=== PATIENT | female | born 2000 | race Caucasian/White ===

== ENCOUNTER 2024-12-12 14:29 | Outpatient (OUT) | payer BC, SELFPAY ==
--- OUTSIDE RECORDS SUMMARY | 2024-11-22 11:15 | XMS_ITS | Encounter Summary ---
Author Organization [employer] Address [id number] [address] [place] [address] Care Team Providers Care Wood Cut Engraver Name Role Phone Unavailable Primary Care Provider Unavailabl e Reason for Referral * Consultation (Routine) - Pending Review Specialty Diagnoses / Procedures Referred By Contac t Referred To Contact Internal Medicine Diagnoses Does not have primary care provider Sarah Mcconnell APRN-CNM [address] [place] [address], [address] [address] Phone: tel: fax: [facility] [address] [place] [phone] Phone: tel: fax: Referral ID Status Reason Start Date Expiration Date Visits Requested Visits Authorized [id number] Pending Review Specialty Services Required 11/23/2024 11/23/2025 1 1 * Consultation (Routine) - Pending Review Specialty Diagnoses / Procedures Referred By Contac t Referred To Contact Gynecology Diagnoses Encounter for visit Sarah Mcconnell APRN-CNM [address] [place] [address], [address] [place] [address] Phone: tel: fax: [facility] [address] [place] [phone] Phone: tel: fax: Referral ID Status Reason Start Date Expiration Date V isits Requested Visits Authorized [id number] Pending Review 11/22/2024 11/22/2025 1 1 Reason for Visit * Reason Comments Care Encounter Details Date Type Department Care Team (Latest Contact Info) Description 11/22/2024 11:15 AM EDT Visit [facility] [address] [place] [id number] Encounter for visit (Primary Dx); Chronic hypertension; Liveborn , of twin , born in hospital by vaginal delivery; Does not have primary care provider; Bladder prolapse, female, acquired Social History Tobacco Use Types Packs/Day Years Used Date Smoking Tobacco: Never Smokeless Tobacco: Never Alcohol Use Standard Drinks/Week Comments Not Currently 0 (1 standard drink = 0.6 oz pur e alcohol) Overall Financial Resource Strain (CARDIA) Answe r Date Recorded How hard is it for you to pa y for the very basics like food, housing, medical care, and heating? Not hard at all 11/22/2024 PHQ-2 Answer Date Recorded Total Score 0 11/22/2024 [employer] Depression Scale Answer Date Recorded [employer] Depression Scale Total 3 11/22/2024 The thought of harming myself has occurred to me . Never 11/22/2024 Housing Instability Answer Date Recorde d Are you worried or concerned that in the next two months you may not have stable housing that you own, rent or stay in as a part of a household? No 10/17/2024 Childcare Answer Date Recorded Do problems getting child ca re make it difficult for you to work or study? No 11/22/2024 Hunger Screening Answer Date Recorded Within the past 12 months we worried whether our food would run out before we got money to buy more. Never True 11/22/2024 Within the past 12 months th e food we bought just didn't last and we didn't have money to get more. Never True 11/22/2024 Comments No Sex and Gender Information Value Date Recorded Sex Assigned at Not on file Legal Sex Female 9:56 AM EST Gender Identity Not on file Sexual Orientation Not on file documented as of this encounter Last Filed Vital Signs Vital Sign Reading Time Taken Comments Blood Pressure 121/84 11/22/2024 11:22 AM EDT automatic Pulse - - Temperature - - Respiratory Rate - - Oxygen Saturation - - Inhaled Oxygen Concentration - - Weight 74.2 kg (163 lb 9.6 oz) 11/23/19 11:22 AM EDT Height 165.1 cm (5' 5 ) 11/22/2024 11:2 2 AM EDT Body Mass Index 27.22 11/22/2024 11:22 AM EDT documented in this encounter Progress Notes * Sarah Mcconnell, CHAVO-CNM - 11/22/2024 11:15 AM EDT Subjective: Natalia Arias is a 24 y.o. female who presents for a visit. She is 6 week following a twin spontaneous vaginal delivery. The patient feels well. The patient denies emotional concerns. Pain is well controlled with current medications. I have fully reviewed the and intrapartum course. The delivery was at 36w3d gestational weeks and complicated by: cHTN, mono-di twin , and anomalies. Outcome: spontaneous vaginal delivery. Anesthesia: epidural. course has been uneventful. Denies JACKSON, changes in vision, SOB, chest pain, RUQ pain, or swelling. Patient stopped taking BP medication and stopped checking her BP at about second week PP due to persistent BP of 120/60. Bleeding staining only. Bowel function is normal. Bladder function is abnormal: endorses dribbling.Patient endorses a feeling of fullness in vagina and would like for us to check laceration as she continues to feel stiches. Patient is not sexually active. Contraception method is condoms. EPDS score = 3 BABY Babies are both males. Babies are feeding by breast and bottle. Babies have been seen outpatient bya provider and reports to be doing well and gaining great weight. Patient endorses great support from her . Review of Systems Constitutional: negative Respiratory: negative Cardiovascular: negative Gastrointestinal: negative Genitourinary:positive for urinary incontinence Integument/breast: negative Objective: BP 121/84 (BP Site: Left Arm, BP Postition: Sitting, BP CUFF SIZE: M (9-13 inches)) Comment: automatic Ht 165.1 cm (5' 5 ) Wt 74.2 kg (163 lb 9.6 oz) Yes BMI 27.22 kg/m?? General: alert, appears stated age, and cooperative Vulva: normal Vagina: vagina positive for vaginal tear/laceration healing well and stitches are coming off. + forbladder prolapse Fleet [employer] offered and accepted Assessment/Plan: Natalia Arias 24 y.o. presents for 6 WK PP visit 1. Encounter for visit - [facility] - [place], [place]; Future 2. Chronic hypertension - Stopped taking labetalol by 2 wks PP - BP was consistently running at 120/60 - denies having BP log today 3. Liveborn infant, of twin , born in hospital by vaginal delivery 4. Does not have primary care provider - [facility] - [facility] - [place], [place]; Future - Encouraged to establish care with PCP 5. Bladder prolapse, female, acquired - Pelvic floor referral sent - Education on Kegel exercise reviewed: 10 Kegels 3x per day. Use breath work to hold muscle tension. MADISYN PAULSON APRN-CNM 11/23/24 0057 * Irma Carlos RN - 11/22/2024 11:15 AM EDT Patient is here for 6 week visit; delivered vaginally on 10/10/2024. Patient reports feeling good . EPDS: 3 (last question 0) Infant Mortality Screening: completed by patient on tablet. Breast feeding/pumping is going well. Light pink Lochia; no clots. Condoms for control. Patient would like to have pelvic exam today concerned for prolapse and non- dissolved stitches. Patient reports she had a pap done at her previous OBGYN office at the beginning of the before transfer to our office. Completed 04/06/2024- Negative cytology HPV not run. No additional questions or concerns. documented in this encounter Plan of Treatment Scheduled Referrals Name Type Priority Associated Diagnoses Order Schedule [facility] - [facility] - [place], [place] Outpatient Referral Routine Encounter for visit 1 Occurrences starting 11/22/2024 until 11/22/2025 [facility] - [place], [place] Outpatient Referral Routine Does not have primary care provider 1 Occurrences starting 11/23/2024 until 11/22/2025 documented as of this encounter Visit Diagnoses Diagnosis Encounter for visit- Primary Chronic hypertension Liveborn , of twin , born in hospital by vaginal delivery Does not have primary care provider Bladder prolapse, female, acquired documented in this encounter Additional Health Concerns Assessment Noted Time PHQ-9 Depression Total Score: 0 11/23/19 11:33 AM EDT documented as of this encounter
--- OUTSIDE RECORDS SUMMARY | 2024-12-12 14:38 | XMS_ITS | Encounter Summary ---
Author Organization [facility] Address [address] [place] [address] Care Team Providers Care Jammer Hooker Name Role Phone Unallocated, Noms Provider Primary Care Provi kelly Encounter Details Date Type Department Care Team ([facility] Contact Info) Description 05/25/2024 External Result Encounter [facility] [address] [facility] [address] [place] [id number] Jhony Gorman, DO [address] [facility] [address] [place] [address] Social History Tobacco Use Types Packs/Day Years Used Date Smoking Tobacco: Never Smokeless Tobacco: Never Alcohol Use Standard Drinks/Week Comments Not Currently 0 (1 standard drink = 0.6 oz pur e alcohol) Caffeine intake: 100mg/daily Estimated Date of Delivery Comme nts Yes 11/04/2024 Based on Ultraso und Sex and Gender Information Value Date Recorded Sex Assigned at Not on file Legal Sex Female 9:39 AM EDT Gender Identity Not on file Sexual Orientation Not on file 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 2 67200: Transvaginal Ultrasound (OB) 31189: Doppler Ductus Venosus. 2 51225: Doppler Umbilical Artery. 2 34130: Doppler Middle Cerebral Artery. 2 Indication ======== Screening for Anatomic Survey, Boone-Di twin , Twin-twin transfusion, Supervision of high risk -Twin A: FGR,absent bladder, Oligohydramnios, Twin B : abnormal dopplers History ====== OB History 1. Para 0 [id number] Maternal Assessment Physical Exam Height 168 cm, 5 ft 6 in. Weight 71 kg, 157 lb. BMI 25.34 kg/m??? Method ====== Transabdominal ultrasound examination. View: Suboptimal view: limited by early gestational age ========= Twin . Number of fetuses: 2. Monochorionic-diamniotic Dating ====== Date Details Gest. age PRISCILLA LMP 01/18/2024 18 w + 2 d 10/24/2024 Previous U/S 04/09/2024 GA, GA 10 w + 1 d 16 w + 5 d 11/04/2024 U/S Fetus A 05/25/2024 based upon AC, BPD, Femur, HC 16 w + 0 d 11/09/2024 U/S Fetus B based upon AC, BPD, Femur, HC 16 w + 4 d 11/05/2024 Assigned dating based on ultrasound (GA), selected on 05/25/2024 16 w + 5 d 11/04/2024 Fetus A: General Evaluation Cardiac activity Present. FHR 162 bpm. Presentation: cephalic left, lower presenting fetus Placenta: Placental site: posterior, away from cervical os Umbilical cord: Cord vessels: 3 vessel cord. Insertion site: marginal insertion Amniotic fluid: Amount of AF: oligohydramnios. MVP 1.0 cm Fetus B: General Evaluation Cardiac activity Present. FHR 159 bpm. Presentation: cephalic right, upper fetus Placenta: Placental site: posterior, away from cervical os Umbilical cord: Cord vessels: 3 vessel cord. Insertion site: normal insertion Amniotic fluid: Amount of AF: normal amount. MVP 7.0 cm Fetus A: Biometry BPD 33.0 mm 16w 2d 27% Hadlock OFD 46.1 mm 17w 4d 78% Roberth HC 127.6 mm 16w 3d 26% Hadlock Cerebellum tr 15.0 mm 16w 3d 5% Scott AC 100.3 mm 16w 0d 28% Hadlock Femur 18.4 mm 15w 3d 7% Hadlock Humerus 18.5 mm 15w 3d 11% Roberth HC / AC 1.27 90% Hadlock Weight Calculation: EFW 137 g 7% Hadlock EFW (lb,oz) 0 lb 5 oz EFW by Hadlock ([id number]) EFW discordance 10.1 % Head / Face / Neck Biometry: Cephalic index 0.72 <1% Nicolaides Nasal bone 4.3 mm Extremities / Bony Struc Biometry: FL / BPD 0.56 5% Hadlock FL / HC 0.14 <1% Hadlock FL / AC 0.18 9% Hadlock Tibia 18.5 mm 16w 3d 41% Roberth Fetus B: Biometry BPD 36.5 mm 17w 1d 71% Hadlock OFD 45.6 mm 17w 3d 74% Roberth HC 132.8 mm 16w 6d 45% Hadlock Cerebellum tr 15.6 mm 16w 6d 12% Scott Nuchal fold 2.2 mm AC 109.7 mm 16w 6d 54% Hadlock Femur 18.8 mm 15w 4d 9% Hadlock Humerus 19.6 mm 15w 5d 23% Roberth HC / AC 1.21 59% Hadlock Weight Calculation: EFW 152 g 20% Hadlock EFW (lb,oz) 0 lb 5 oz EFW by Hadlock ([id number]) EFW discordance 10.1 % Head / Face / Neck Biometry: Cephalic index 0.80 56% Nicolaides CM 3.0 mm 14% Nicolaides Nasal bone 4.4 mm Extremities / Bony Struc Biometry: FL / BPD 0.52 <1% Hadlock FL / HC 0.14 <1% Hadlock FL / AC 0.17 1% Hadlock Tibia 17.0 mm 15w 6d 23% Roberth Fetus A: Anatomy The following structures appear abnormal: Abdomen Bladder. The following structures appear normal: Head / Neck Cranium. Choroid plexus. Midline falx. Parenchyma. Face Nasal bone. Orbits. Heart / Thorax Situs. Cardiac axis. Cardiac size. Cardiac rhythm. Abdomen Abdom. wall. Cord insertion. Stomach. Small bowel. Large bowel. Genitals. Extremities / Skeleton Right upper arm. Right forearm. Left upper arm. Left forearm. Right upper leg. Right lower leg. Left upper leg. Left lower leg. The following structures could not be adequately visualized: Head / Neck Cerebellum. Face Profile. Maxilla. Mandible. Heart / Thorax 4-chamber view. Aortic arch view. Interventricular septum. Great vessels. Diaphragm. Abdomen Kidneys. Extremities / Skeleton Right hand. Left hand. Right foot. Left foot. The following structures could not be examined: Head / Neck Lateral ventricles. Cavum septi pellucidi. Cisterna magna. Vermis. Neck. Nuchal fold. Face Lips. Nose. Heart / Thorax RVOT view. LVOT view. 3-vessel view. 4-dmozrw-whuwqzb view. Bicaval view. Ductal arch view. Right lung. Left lung. Abdomen Right renal artery. Left renal artery. Spine Cervical spine. Thoracic spine. Lumbar spine. Sacral spine. Fetus B: Anatomy The following structures appear normal: Head / Neck Cranium. Choroid plexus. Midline falx. Cerebellum. Cisterna magna. Parenchyma. Neck. Nuchal fold. Face Profile. Nasal bone. Orbits. Heart / Thorax Situs. Great vessels. Cardiac axis. Cardiac size. Cardiac rhythm. Abdomen Abdom. wall. Cord insertion. Stomach. Kidneys. Bladder. Small bowel. Large bowel. Genitals. Extremities / Skeleton Right upper arm. Right forearm. Right hand. Left upper arm. Left forearm. Left hand. Right upper leg. Right lower leg. Right foot. Left upper leg. Left lower leg. Left foot. The following structures could not be adequately visualized: Head / Neck Cavum septi pellucidi. Vermis. Face Lips. Nose. Maxilla. Mandible. Heart / Thorax 4-chamber view. LVOT view. 3-vessel view. 1-aochia-fovxwbo view. Aortic arch view. Bicaval view. Interventricular septum. Diaphragm. Abdomen Right renal artery. Left renal artery. Spine Cervical spine. Thoracic spine. Lumbar spine. Sacral spine. The following structures could not be examined: Head / Neck Lateral ventricles. Heart / Thorax RVOT view. Ductal arch view. Right lung. Left lung. Fetus A: Doppler Umbilical Artery: normal PI 1.23 PS -23.84 cm/s TAmax -13.73 cm/s MD -6.59 cm/s S / D 3.54 Mid Cerebral Artery: normal PI 1.60 RI 0.75 PS 15.77 cm/s PS 0.72 MoM ED 3.89 cm/s TAmax 7.67 cm/s CPR PI 1.30 Ductus Venosus: normal Fetus B: Doppler Umbilical Artery: normal PI 1.51 PS 41.41 cm/s TAmax 20.59 cm/s MD 8.75 cm/s S / D 4.40 Mid Cerebral Artery: normal PI 0.97 RI 0.59 PS 18.60 cm/s PS 0.85 MoM ED 7.62 cm/s TAmax 11.81 cm/s CPR PI 0.64 Ductus Venosus: abnormal Maternal Structures Uterus Visualized Cervix Visualized Approach - Transvaginal: Cervical length 6.49 cm Right Ovary Not visualized Left Ovary Not visualized Cul de Sac Visualized. No free fluid visualized Impression ========= Monochorionic-diamniotic twin consistent with 16w 5d with an PRISCILLA of 11/04/2024. Twin A is cephalic left, lower presenting fetus. EFW is 137 g at the 7%. Amniotic fluid MVP measures 1 cm, Oligohydramnios. Umbilical artery S/D ratio in normal range with continuous forward flow. MCA PSV measures 15.77 cm/s, 0.72 MoM which is in the unremarkable range for the evaluation of anemia. Ductus venosus demonstrates continuous forward flow. bladder not visualized on today's exam. Twin B is cephalic right, upper fetus. EFW is 152 g at the 20%. Amniotic fluid MVP measures 7 cm. Umbilical artery S/D ratio in normal range with continuous forward flow. MCA PSV measures 18.60 cm/s, 0.85 MoM which is in the unremarkable range for the evaluation of anemia. Ductus venosus demonstrates reversed flow on today's exam. Bladder visualized. Suspected CVI cyst seen and measures 0.75 x 0.28 cm. Recommendations Please see MFM documentation from today. Subsequent follow up or other follow up as clinically determined by primary OB provider unless otherwise specified by MFM. Results forwarded to ordering provider so they can follow up with the patient as necessary. The copy-to physician of this order is JHONY Chinchilla The ordering physician of this order is WILLY Andrea Procedure Note Radiology, Radiologist, - 05/25/2024 THIS EXAM WAS PERFORMED AT [facility] Coding ====== Procedures [id number]: Comprehensive Detailed Anatomy Ultrasound. 2 93520: Transvaginal Ultrasound (OB) 52204: Doppler Ductus Venosus. 2 90949: Doppler Umbilical Artery. 2 47494: Doppler Middle Cerebral Artery. 2 Indication ======== Screening for Anatomic Survey, Boone-Di twin , Twin-twintransfusion, Supervision of high risk -Twin A: FGR,absentbladder, Oligohydramnios, Twin B : abnormal dopplers History ====== OB History 1. Para 0 [id number] Maternal Assessment Physical Exam Height 168 cm, 5 ft 6 in. Weight 71 kg, 157 lb. BMI 25.34kg/m??? Method ====== Transabdominal ultrasound examination. View: Suboptimal view: limited byearly gestational age ========= Twin . Number of fetuses: 2. Monochorionic-diamniotic Dating ====== Date Details Gest. ageEDD LMP 01/18/2024 18 w + 2 10/24/2024 Previous U/S 04/09/2024 GA, GA 10 w + 1 d 16w + 5 d 11/04/2024 U/S Fetus A 05/25/2024 based upon AC, BPD, Femur, HC 16w + 0 d 11/09/2024 U/S Fetus B based upon AC, BPD, Femur, HC 16 w + 4 11/05/2024 Assigned dating based on ultrasound (GA), selected on w + 5 d 11/04/2024 Fetus A: General Evaluation Cardiac activity Present. FHR 162 bpm. Presentation: cephalic left, lowerpresenting fetus Placenta: Placental site: posterior, away from cervical os Umbilical cord: Cord vessels: 3 vessel cord. Insertion site: marginalinsertion Amniotic fluid: Amount of AF: oligohydramnios. MVP 1.0 cm Fetus B: General Evaluation Cardiac activity Present. FHR 159 bpm. Presentation: cephalic right, upperfetus Placenta: Placental site: posterior, away from cervical os Umbilical cord: Cord vessels: 3 vessel cord. Insertion site: normalinsertion Amniotic fluid: Amount of AF: normal amount. MVP 7.0 cm Fetus A: Biometry BPD 33.0 mm 16w 2d 27% Hadlock OFD 46.1 mm 17w 4d 78% Roberth HC 127.6 mm 16w 3d 26% Hadlock Cerebellum tr 15.0 mm 16w 3d 5% Scott AC 100.3 mm 16w 0d 28% Hadlock Femur 18.4 mm 15w 3d 7% Hadlock Humerus 18.5 mm 15w 3d 11% Roberth HC / AC 1.27 90% Hadlock Weight Calculation: EFW 137 g 7% Hadlock EFW (lb,oz) 0 lb 5 oz EFW by Hadlock ([id number]) EFW discordance 10.1 % Head / Face / Neck Biometry: Cephalic index 0.72 <1% Nicolaides Nasal bone 4.3 mm Extremities / Bony Struc Biometry: FL / BPD 0.56 5% Hadlock FL / HC 0.14 <1% Hadlock FL / AC 0.18 9% Hadlock Tibia 18.5 mm 16w 3d 41% Roberth Fetus B: Biometry BPD 36.5 mm 17w 1d 71% Hadlock OFD 45.6 mm 17w 3d 74% Roberth HC 132.8 mm 16w 6d 45% Hadlock Cerebellum tr 15.6 mm 16w 6d 12% Scott Nuchal fold 2.2 mm AC 109.7 mm 16w 6d 54% Hadlock Femur 18.8 mm 15w 4d 9% Hadlock Humerus 19.6 mm 15w 5d 23% Roberth HC / AC 1.21 59% Hadlock Weight Calculation: EFW 152 g 20% Hadlock EFW (lb,oz) 0 lb 5 oz EFW by Hadlock ([id number]) EFW discordance 10.1 % Head / Face / Neck Biometry: Cephalic index 0.80 56% Nicolaides CM 3.0 mm 14% Nicolaides Nasal bone 4.4 mm Extremities / Bony Struc Biometry: FL / BPD 0.52 <1% Hadlock FL / HC 0.14 <1% Hadlock FL / AC 0.17 1% Hadlock Tibia 17.0 mm 15w 6d 23% Roberth Fetus A: Anatomy The following structures appear abnormal: Abdomen Bladder. The following structures appear normal: Head / Neck Cranium. Choroid plexus. Midline falx. Parenchyma. Face Nasal bone. Orbits. Heart / Thorax Situs. Cardiac axis. Cardiac size. Cardiac rhythm. Abdomen Abdom. wall. Cord insertion. Stomach. Small bowel. Largebowel. Genitals. Extremities / Skeleton Right upper arm. Right forearm. Left upper arm.Left forearm. Right upper leg. Right lower leg. Left upper leg. Left lowerleg. The following structures could not be adequately visualized: Head / Neck Cerebellum. Face Profile. Maxilla. Mandible. Heart / Thorax 4-chamber view. Aortic arch view. Interventricular septum.Great vessels. Diaphragm. Abdomen Kidneys. Extremities / Skeleton Right hand. Left hand. Right foot. Left foot. The following structures could not be examined: Head / Neck Lateral ventricles. Cavum septi pellucidi. Cisterna magna.Vermis. Neck. Nuchal fold. Face Lips. Nose. Heart / Thorax RVOT view. LVOT view. 3-vessel view. 6-xtsrwo-qrwzbox view.Bicaval view. Ductal arch view. Right lung. Left lung. Abdomen Right renal artery. Left renal artery. Spine Cervical spine. Thoracic spine. Lumbar spine. Sacralspine. Fetus B: Anatomy The following structures appear normal: Head / Neck Cranium. Choroid plexus. Midline falx. Cerebellum. Cisternamagna. Parenchyma. Neck. Nuchal fold. Face Profile. Nasal bone. Orbits. Heart / Thorax Situs. Great vessels. Cardiac axis. Cardiac size. Cardiacrhythm. Abdomen Abdom. wall. Cord insertion. Stomach. Kidneys. Bladder.Small bowel. Large bowel. Genitals. Extremities / Skeleton Right upper arm. Right forearm. Right hand. Leftupper arm. Left forearm. Left hand. Right upper leg. Right lower leg.Right foot. Left upper leg. Left lower leg. Left foot. The following structures could not be adequately visualized: Head / Neck Cavum septi pellucidi. Vermis. Face Lips. Nose. Maxilla. Mandible. Heart / Thorax 4-chamber view. LVOT view. 3-vessel view. 8-uvzeyv-dxznyzpvrpj. Aortic arch view. Bicaval view. Interventricular septum. Diaphragm. Abdomen Right renal artery. Left renal artery. Spine Cervical spine. Thoracic spine. Lumbar spine. Sacralspine. The following structures could not be examined: Head / Neck Lateral ventricles. Heart / Thorax RVOT view. Ductal arch view. Right lung. Left lung. Fetus A: Doppler Umbilical Artery: normal PI 1.23 PS -23.84 cm/s TAmax -13.73 cm/s MD -6.59 cm/s S / D 3.54 Mid Cerebral Artery: normal PI 1.60 RI 0.75 PS 15.77 cm/s PS 0.72 MoM ED 3.89 cm/s TAmax 7.67 cm/s CPR PI 1.30 Ductus Venosus: normal Fetus B: Doppler Umbilical Artery: normal PI 1.51 PS 41.41 cm/s TAmax 20.59 cm/s MD 8.75 cm/s S / D 4.40 Mid Cerebral Artery: normal PI 0.97 RI 0.59 PS 18.60 cm/s PS 0.85 MoM ED 7.62 cm/s TAmax 11.81 cm/s CPR PI 0.64 Ductus Venosus: abnormal Maternal Structures Uterus Visualized Cervix Visualized Approach - Transvaginal: Cervical length 6.49 cm Right Ovary Not visualized Left Ovary Not visualized Cul de Sac Visualized. No free fluid visualized Impression ========= Monochorionic-diamniotic twin consistent with 16w 5d with an EDDof 11/04/2024. Twin A is cephalic left, lower presenting fetus. EFW is 137 g at the 7%. Amniotic fluid MVP measures 1 cm, Oligohydramnios. Umbilical artery S/D ratio in normal range with continuous forward flow. MCA PSV measures 15.77 cm/s, 0.72 MoM which is in the unremarkable rangefor the evaluation of anemia. Ductus venosus demonstrates continuous forward flow. bladder not visualized on today's exam. Twin B is cephalic right, upper fetus. EFW is 152 g at the 20%. Amniotic fluid MVP measures 7 cm. Umbilical artery S/D ratio in normal range with continuous forward flow. MCA PSV measures 18.60 cm/s, 0.85 MoM which is in the unremarkable rangefor the evaluation of anemia. Ductus venosus demonstrates reversed flow on today's exam. Bladder visualized. Suspected CVI cyst seen and measures 0.75 x 0.28 cm. Recommendations Please see MFM documentation from today. Subsequent follow up or other follow up as clinically determined byprimary OB provider unless otherwise specified by MFM. Results forwarded to ordering provider so they can follow up with thepatient as necessary. The copy-to physician of this order is JHONY Chinchilla The ordering physician of this order is WILLY Andrea us Jhony Gorman DO IMG OB US PROCEDURES Final Re sult documented in this encounter Visit Diagnoses Not on filedocumented in this encounter Care Teams Jammer Hooker Relationship Specialty Start Date End Date Unallocated, Noms Provider, [address] [place] [address] PCP - General Family Medicine 03/21/24 documented as of this encounter
--- OUTSIDE RECORDS SUMMARY | 2024-12-12 14:38 | XMS_ITS | Clinical Summary ---
Author Organization [employer] tem Address [facility] – [id number] [address] 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 Active ferrous sulfate 325 (65 FE) MG tablet Take 1 tablet (325 mg total) by mouth in the morning. 30 tablet 3 5 Active labetaloL 400 mg tablet Take 400 mg by mouth every 8 (eight) hours. 90 tablet 1 5 Active acetaminophen (TYLENOL) 325 mg tablet Take 2 tablets (650 mg total) by mouth every 6 (six) hours as needed for pain. 60 tablet 5 Active ibuprofen (MOTRIN) 600 mg tablet Take 1 tablet (600 mg total) by mouth every 6 (six) hours as needed for pain. 60 tablet 5 Active Additional Information Patient not taking.Reported on 10/17/2024 docusate sodium (COLACE) 100 mg capsule Take 1 capsule (100 mg total) by mouth in the morning and 1 capsule (100 mg total) before bedtime. 60 capsule 5 Active Active Problems Problem Noted Date Diagnosed Date History of chronic hypertension 08/09/2024 Overview (11/29/2024): Dx in History of gestational hypertension 06/10/2024 Overview (08/14/2024): Review of [place] [facility] records: 04/30/24 13 weeks 122/90 05/21/24 16 weeks 130/90 BP cuff prescribed for twice daily testing. 05/25/24 134/97 Recheck 124/84 05/26/24 Post SFLP, nifedipine scheduled for cardiac benefit. Will start bp checks twice daily when stops nifedipine. Resolved Problems Problem Noted Date Diagnosed Date Resolved Date Club foot, , affecting care of mother, antepartum 06/28/2024 11/29/2024 Placental abnormality in second trimester 06/28/2024 11/29/2024 Overview (07/25/2024): Twin B Placentomegaly growth restriction antepartum RESOLVED 11/29/2024 Overview (06/27/2024): Baby A cardiac anomaly compli cating , antepartum, fetus 1 06/10/2024 11/29/2024 Overview (06/10/2024): Twin A 06/01/24 [facility] 1. Prior donor twin. 2. Vascular ring with a right aortic arch and a left sided ductus arteriosus. 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 3. Normal right ventricular size and systolic function. 4. Normal left ventricular size and systolic function. 5. Normal heart rate and rhythm. complicated by fet al cerebral ventriculomegaly, fetus 2 06/10/2024 11/29/2024 Overview (07/25/2024): Twin B Noted on US on 06/07/24 Referral to [facility] 06/28/24 US RESOLVED Monochorionic diamniotic twi n , antepartum 06/10/2024 11/29/2024 Overview (10/01/2024): Start testing with weekly NST and DVP/Doppler at 28 weeks increase NST to twice weekly at 32 weeks Serial growth scans Timing of delivery: Pending growth scans S/p ANCS / and 09/14/24 05/26/24 Selective fetoscopic laser photocoagulation (SFLP) Nifedipine 20 mg every 6 hrs Modified BR Growth every 3-4 weeks Cervical length weekly until 24 weeks MCA and umbilical and DV dopplers weekly Twin A (evaluated at [facility]) with vascular ring, right sided aortic arch, left sided ductus arteriosus, and a 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 Continue weekly serial Doppler studies for the next 4 weeks and then switch to every 14 days 2. Continue serial growth ultrasounds every 4 weeks at [facility] office. 3. Initiate testing form once a week NST and DANIEL at 28 weeks gestation at [facility] office. 4. Timing of delivery is contingent with growth and will be discussed in the 3rd trimester. 5. NICU consult after 28-34 weeks 6. Patient will like to see [facility] Pediatric Cardiology after delivery. Patient has met with pediatric Cardiology at [facility] 09/26/24 NICU consult: see note. 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 No evidence of polyhydramnios. It appears to be unlikely that there is constriction at the level of trachea or esophagus. Bilateral club feet. Mild IUGR The fetus otherwise appears normal. Twin B (male, prior recipient twin) has: Left frontal, parietal and occipital brain parenchymal volume loss likely from prior ischemic event results in mild left lateral ventriculomegaly. 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 Right basal ganglia and thalamus small. Findings of right germinal matrix hemorrhage with likely intraventricular hemorrhage. IUGR, less than the 3rd percentile. At high risk for seizure disorders. Encounters Date Type Department Care Team Description 11/22/2024 11:15 AM EDT Visit [facility] - Women's Services [address] [place] [address] Encounter for visit (Primary Dx); Chronic hypertension; Liveborn infant, of twin , born in hospital by vaginal delivery; Does not have primary care provider; Bladder prolapse, female, acquired 11/22/2024 Travel 11/20/2024 Travel 10/17/2024 2:00 PM EDT Visit [facility] Women's Services [address] [place] [address] Marcus Flores DO Routine follow-up (Primary Dx); Gestational hypertension, third trimester 10/17/2024 Travel 10/17/2024 [facility] [address] [place] [address] Roxana Lopez, pattern grader Services 10/15/2024 Telephone [facility] Women's Services [address] [place] [address] Services, [facility] - Women's 10/10/2024 8:45 AM EDT - 10/10/2024 10:10 AM EDT Surgery [facility] - Labor [address] [place] [address] Wendi Dominguez MD MULTIPLE GESTATION VAGINAL DELIVERY IN OR 10/10/2024 2:32 AM EDT Anesthesia Event [facility] - Labor [address] [place] [address] Benjamin Emmanuel MD Reeves, Monica Joy, DISTRICT SALES LEADER-WATER PLANT PUMP OPERATOR 10/09/2024 8:41 AM EDT - 10/13/2024 6:35 PM EDT Hospital Encounter [facility] - GEN 4 [address] [place] [address] Marcus Flores DO Gestational hypertension, third trimester (Primary Dx) Discharge Disposition: Home 10/09/2024 Travel 10/08/2024 8:15 AM EDT Support Visit Maternal- Medicine at [facility] [address] [place] [address] Gestational hypertension, third trimester (Primary Dx); Monochorionic diamniotic twin , antepartum; Chronic hypertension affecting ; Club foot of fetus affecting antepartum care of mother, single or unspecified fetus; cardiac anomaly complicating , antepartum, fetus 1 10/08/2024 Travel 10/04/2024 10:45 AM EDT [facility] [address] [place] [phone] Marianne Moreira MD GA: [id number] 10/04/2024 8:15 AM EDT Support Visit Maternal- Medicine at [facility] [address] [place] [address] Gestational hypertension, third trimester (Primary Dx); Monochorionic diamniotic twin , antepartum; Club foot of fetus affecting antepartum care of mother, single or unspecified fetus; cardiac anomaly complicating , antepartum, fetus 1; Placental abnormality in second trimester 10/04/2024 8:12 AM EDT - 10/04/2024 11:59 PM EDT Hospital Encounter [facility] - [facility] US Imaging [address] [place] [address] Monochorionic diamniotic twin , antepartum; Club foot of fetus affecting antepartum care of mother, single or unspecified fetus; cardiac anomaly complicating , antepartum, fetus 1; Abnormal ultrasonic finding on screening of mother, antepartum; Placental abnormality in third trimester Discharge Disposition: Home 10/01/2024 8:45 AM EDT Support Visit Maternal- Medicine at [facility] [address] [place] [address] Gestational hypertension, third trimester (Primary Dx); Monochorionic diamniotic twin , antepartum; Club foot of fetus affecting antepartum care of mother, single or unspecified fetus; cardiac anomaly complicating , antepartum, fetus 1; Chronic hypertension affecting 10/01/2024 Travel 09/29/2024 Telephone [facility] - Labor [address] [place] [address] Corina Summers, DISTRICT SALES LEADER-CNM 09/29/2024 Telephone [facility] [address] [place] [address] Julita Donohue RN Contractions 09/28/2024 Orders Only [facility] Women's Services [address] [place] [phone] Marianne Moreira MD 09/27/2024 1:40 PM EDT - 09/27/2024 11:59 PM EDT Hospital Encounter [facility] [address] [place] [address] care, third trimester Discharge Disposition: Home 09/27/2024 11:15 AM EDT Support Visit Maternal- Medicine at [facility] [address] [place] [address] Gestational hypertension, third trimester (Primary Dx); Monochorionic diamniotic twin , antepartum 09/27/2024 11:00 AM EDT - 09/27/2024 1:39 PM EDT Hospital Encounter [facility] US Imaging [address] [facility] [place] [address] Monochorionic diamniotic twin , antepartum Discharge Disposition: Home 09/27/2024 10:00 AM EDT Routine [facility] Women's Services [address] [place] [phone] Marianne Moreira MD GA: [id number] 09/27/2024 Documentation Maternal- Medicine at [facility] [address] [place] [address] Toya Patterson MD 09/26/2024 Documentation [facility] NICU Physician Sign In [phone] Yamil Mo MD 09/24/2024 1:45 PM EDT Support Visit Maternal- Medicine at [facility] [address] [facility] [place] [address] [phone] Gestational hypertension, third trimester (Primary Dx); Monochorionic diamniotic twin , antepartum; Club foot of fetus affecting antepartum care of mother, single or unspecified fetus; Chronic hypertension affecting ; cardiac anomaly complicating , antepartum, fetus 1 09/24/2024 Travel 09/21/2024 Orders Only Maternal- Medicine at [facility] [address] [place] [address] Lacey Simmons RN Monochorionic diamniotic twin , antepartum (Primary Dx); Club foot of fetus affecting antepartum care of mother, single or unspecified fetus; cardiac anomaly complicating , antepartum, fetus 1; Placental abnormality in second trimester; Abnormal ultrasonic finding on screening of mother, antepartum; Placental abnormality in third trimester 09/20/2024 8:18 AM EDT - 09/20/2024 11:59 PM EDT Hospital Encounter [facility] - [facility] US Imaging [address] [place] [address] Marianne Moreira MD Chronic hypertension affecting ; Club foot of fetus affecting antepartum care of mother, single or unspecified fetus; Anomaly of placenta in third trimester; growth restriction antepartum; Monochorionic diamniotic twin , antepartum; Abnormal ultrasonic finding on screening of mother, antepartum Discharge Disposition: Home 09/20/2024 8:15 AM EDT Support Visit Maternal- Medicine at [address] [address] Gestational hypertension, third trimester (Primary Dx); Monochorionic diamniotic twin , antepartum; Club foot of fetus affecting antepartum care of mother, single or unspecified fetus; cardiac anomaly complicating , antepartum, fetus 1; Placental abnormality in second trimester 09/17/2024 8:15 AM EDT Support Visit Maternal- Medicine at [place] [address] [place] [address] Gestational hypertension, third trimester (Primary Dx); Monochorionic diamniotic twin , antepartum; Club foot of fetus affecting antepartum care of mother, single or unspecified fetus; cardiac anomaly complicating , antepartum, fetus 1; Chronic hypertension affecting 09/17/2024 Travel 09/14/2024 4:19 PM EDT - 09/14/2024 4:55 PM EDT Hospital Encounter [facility] - Labor [address] [facility] [place] [address] Edinson Rios MD Gestational hypertension, third trimester (Primary Dx) Discharge Disposition: Home 09/13/2024 11:15 AM EDT Office Visit Maternal- Medicine at [facility] [address] [place] [address] Toya Patterson MD 32 weeks gestation of (Primary Dx); Monochorionic diamniotic twin , antepartum 09/13/2024 11:06 AM EDT - 09/13/2024 6:23 PM EDT Hospital Encounter [facility] - Emergency Center [address] [place] [address] Edinson Rios MD Gestational hypertension, third trimester (Primary Dx) Discharge Disposition: Home 09/13/2024 9:17 AM EDT - 09/13/2024 11:05 AM EDT Hospital Encounter [facility] - [facility] US Imaging [address] [facility] [place] [address] Monochorionic diamniotic twin , antepartum Discharge Disposition: Home 09/13/2024 9:15 AM EDT Support Visit Maternal- Medicine at [facility] [address] [place] [address] Gestational hypertension, third trimester (Primary Dx); Monochorionic diamniotic twin , antepartum; Club foot of fetus affecting antepartum care of mother, single or unspecified fetus; growth restriction antepartum; cardiac anomaly complicating , antepartum, fetus 1 09/13/2024 Telephone [facility] [address] [place] [address] Juliette Cordoba 09/13/2024 Orders Only Maternal- Medicine at [facility] [address] [place] [address] Lacey Simmons RN from Last 3 Months Immunizations Immunization Administration Dates Next Due Influenza, Injectable, quadrivalent (PF) 019 Family History Medical History Relation Name Comments Cancer Maternal Grandfather stomach Cancer Maternal Grandmother colon Thyroid disease Mother Diabetes Neg Hx Hypertension Neg Hx Relation Name Status Comments Maternal Grandfather Maternal Grandmother Maternal great-grandmother Other b reast cancer at age 28 Mother Paternal Grandfather Alive Social History Tobacco Use Types Packs/Day Years Used Date Smoking Tobacco: Never Smokeless Tobacco: Never Tobacco Cessation:Counseling Given: Not Answered Alcohol Use Standard Drinks/Week Comments Not Currently 0 (1 standard drink = 0.6 oz pur e alcohol) Overall Financial Resource Strain (CARDIA) Answe r Date Recorded How hard is it for you to pa y for the very basics like food, housing, medical care, and heating? Not hard at all 11/22/2024 PHQ-2 Answer Date Recorded Total Score 0 11/22/2024 [place] Depression Scale Answer Date Recorded [place] Depression Scale Total 3 11/22/2024 The thought [...] on file Sexual Orientation Not on file Last Filed Vital Signs Vital Sign Reading Time Taken Comments Blood Pressure 121/84 11/22/2024 11:22 AM EDT automatic Pulse 79 10/13/2024 4:18 PM EDT Temperature 36.7 C (98.1 F) 10/13/2024 4:18 PM EDT Respiratory Rate 16 10/13/2024 4:18 PM EDT Oxygen Saturation 98% 10/10/2024 4:30 AM EDT Inhaled Oxygen Concentration - - Weight 74.2 kg (163 lb 9.6 oz) 11/23/19 11:22 AM EDT Height 165.1 cm (5' 5 ) 11/22/2024 11:2 2 AM EDT Body Mass Index 27.22 11/22/2024 11:22 AM EDT Plan of Treatment Health Maintenance Due Date Last Done Comments Adult BMI Follow Up Plan 08/27/2019 DTaP,Tdap and Td Vaccines (1 - Tdap) 2020 COVID-19 Vaccine (3 - season) 2024, 09/16/2020 Influenza Vaccine 02/11/2025 03/28/2019 Tobacco Screening 10/17/2025 10/17/2024 Adult BMI Screening 11/22/2025 11/22/2024 Depression Screening 11/22/2025 11/22/2024, 11/23/19 Pap Smear 04/06/2027 04/06/2024 Medical Devices Not on file Procedures Procedure Name Priority Date/Time Associated Diagnosis Comments SURGICAL PATHOLOGY Routine 10/10/2024 12 :25 PM EDT BLOOD GAS, ARTERIAL, CORD Routine 10/10/2024 9:45 AM EDT BLOOD GAS, VENOUS, CORD Routine 10/10/2024 9:42 AM EDT BLOOD GAS, VENOUS, CORD Routine 10/10/2024 9:37 AM EDT VAGINAL DELIVERY IN OR 10/10/2024 8:48 AM EDT HEPATITIS C(HCV) ANTIBODY W/REFLEX TO PCR Routine 10/10/2024 5:18 AM EDT HEPATITIS B SURFACE ANTIGEN Routine 10/10/2024 5:18 AM EDT RUBELLA IGG IMMUNE STATUS Routine 10/10/2024 5:18 AM EDT COMPREHENSIVE METABOLIC PANEL STAT 10/10/2024 5:18 AM EDT CBC WITH AUTO DIFFERENTIAL STAT 10/10/2024 5:18 AM EDT ANESTHESIA EPIDURAL BLOCK Routine 10/10/2024 2:54 AM EDT REPEATED ABORH Routine 10/09/2024 7:20 PM EDT DRUG SCREEN, URINE STAT 10/09/2024 9: 34 AM EDT REPEATED ABORH Routine 10/09/2024 9:25 AM EDT TYPE AND SCREEN STAT 10/09/2024 9:25 AM EDT URIC ACID STAT 10/09/2024 9:25 AM EDT LDH STAT 10/09/2024 9:25 AM EDT COMPREHENSIVE METABOLIC PANEL STAT 10/09/2024 9:25 AM EDT CBC (NO DIFF) STAT 10/09/2024 9:25 AM EDT SYPHILIS TOTAL(UNKNOWN SYPHILIS STATUS) Routine 10/09/2024 9:25 AM EDT NONSTRESS TEST Routine 10/08/2024 1:33 PM EDT Monochorionic diamniotic twin , antepartum NONSTRESS TEST Routine 10/04/2024 3:15 PM EDT Monochorionic diamniotic twin , antepartum US MFM LMTD OB, 1 OR MORE FETUS Routine 10/04/2024 10:54 AM EDT Monochorionic diamniotic twin , antepartum Club foot of fetus affecting antepartum care of mother, single or unspecified fetus cardiac anomaly complicating , antepartum, fetus 1 Abnormal ultrasonic finding on screening of mother, antepartum Placental abnormality in third trimester NONSTRESS TEST Routine 10/01/2024 4:25 PM EDT Monochorionic diamniotic twin , antepartum NONSTRESS TEST Routine 09/27/2024 3:25 PM EDT Monochorionic diamniotic twin , antepartum US MFM LMTD OB, 1 OR MORE FETUS Routine 09/27/2024 12:30 PM EDT Monochorionic diamniotic twin , antepartum CHLAMYDIA/GONORRHOEAE BY PCR, URINE Routine 09/27/2024 10:43 AM EDT care, third trimester STREP B SCREEN Routine 09/27/2024 9:53 AM EDT care, third trimester VAGINITIS PANEL PCR Routine 09/27/2024 9 :53 AM EDT care, third trimester NONSTRESS TEST Routine 09/24/2024 4:22 PM EDT Monochorionic diamniotic twin , antepartum NONSTRESS TEST Routine 09/20/2024 1:06 PM EDT Monochorionic diamniotic twin , antepartum CHG DOPPLER UMBILICAL ARTERY Routine 09/20/2024 10:59 AM EDT Chronic hypertension affecting Club foot of fetus affecting antepartum care of mother, single or unspecified fetus Anomaly of placenta in third trimester growth restriction antepartum Monochorionic diamniotic twin , antepartum Abnormal ultrasonic finding on screening of mother, antepartum NONSTRESS TEST Routine 09/17/2024 2:35 PM EDT Monochorionic diamniotic twin , antepartum ECG 12-LEAD Routine 09/13/2024 11:59 AM EDT NONSTRESS TEST Routine 09/13/2024 11:51 AM EDT Monochorionic diamniotic twin , antepartum PROTEIN CREAT RATIO STAT 09/13/2024 1 1:31 AM EDT URINALYSIS STAT 09/13/2024 11:31 AM EDT TSH WITH REFLEX Add-On 09/13/2024 11:24 AM EDT COMPREHENSIVE METABOLIC PANEL Routine 09/13/2024 11:24 AM EDT URIC ACID STAT 09/13/2024 11:24 AM EDT LDH STAT 09/13/2024 11:24 AM EDT MAGNESIUM STAT 09/13/2024 11:24 AM EDT B-TYPE NATRIURETIC PEPTIDE Add-On 09/13/2024 11:23 AM EDT CBC (NO DIFF) STAT 09/13/2024 11:23 AM EDT US MFM LMTD OB, 1 OR MORE FETUS Routine 09/13/2024 11:16 AM EDT Monochorionic diamniotic twin , antepartum from Last 3 Months Results * Surgical Pathology (10/10/2024 12:25 PM EDT) Case Report Surgical Pathology Report Case: [id number] Authorizing Provider: Katy Lujan MD Collected: 10/10/2024 1225 Ordering Location: [facility] Received: 10/12/2024 1610 - Labor Pathologist: Janna Bashir MD Specimen: Placenta, Twin 11/06/2024 10:23 AM [facility] Final Diagnosis Placenta: Monochorionic-rubi mniotic twin gestation placenta, third trimester. Three vessel umbilical cords, two. 11/06/2024 10:23 AM [facility] at 1023 EDT Clinical Information twin vag delivery 11/06/2024 10:23 AM [facility] Gross Description Received in formalin labeled BELG[place], twin placenta : There is a single placental disc with dividing membranes MEMBRANES: Placenta Sac Rupture (cm from margin): Baby A: Indeterminate, 20% disrupted Baby B: Indeterminate, 10% disrupted Color: Blue-lan Other Characteristics: Uniform and unremarkable Insertion Site: 100% marginal CORD: Appearance: Unremarkable Site of Insertion: Baby A: Eccentric Baby B: Marginal Length & Diameter (cm): Baby A: 32 x 0.8 cm Baby B: 23 x 0.6 cm True Knots: No Number of vessels: Baby A: 3 Baby B: 3 GENERAL: Trimmed Weight (grams): 803 g Complete: Yes Size 1 x Size 2 x Size 3 (cm): Baby A: 15 x 6 x 2 cm Baby B: 17 x 16 x 2 cm Accessory Lobe(s): No PLACENTAL DISK: Color of Surface: Blue-lan Sub-amniotic Cyst: No Amnion Nodosum: No Subchorionic Fibrin: No Appearance of Cut Surface: Baby B-there is a single area of possible infarct, 1.5 cm in greatest dimension Maternal floor: Intact and unremarkable Retroplacental hematoma: No Cassettes: A Baby A rolled membrane, two sections of cord B-D Baby A computer help desk representative sections of placenta E Baby B rolled membrane, two sections of cord F-H Baby B computer help desk representative sections of placenta to include possible infarct in cassette F I Dividing membranes (9, ss, [id number]) . 11/06/2024 10:23 AM [facility] Embedded Images 11/06/2024 10:23 AM [facility] Tissue (Placenta, Twin) 10/10/2024 12:25 PM EDT 10/12/2024 4:10 PM EDT us Katy Lujan MD PATHOLOGY/CYTOLOGY ORDERABLES Final Result [facility] [address] [place] [address], [place] * (ABNORMAL) Cord Arterial Blood Gas (10/10/2024 9:45 AM EDT) Sample type UMBILICAL CORD 10/10/2024 9:57 AM EDT [facility] pH, Arterial Cord 7.277 10/10/2024 9:57 AM EDT [facility] pCO2, Arterial Cord 45.4 mmHG 10/10/2024 9:57 AM EDT [facility] pO2, Arterial Cord 17 mmHG 10/10/2024 9:57 AM EDT [facility] Base, Deficit -6.0(L) 0.0 - 2.0 mmol/L 10/10/2024 9:57 AM EDT [facility] %O2 Saturation, Cord Arterial 19.0 10/10/2024 9:57 AM EDT [facility] Dagoberto's test N/A 10/10/2024 9:57 AM EDT [facility] Sample site Art Cord 10/10/2024 9:57 AM EDT [facility] Source Of Oxygen Room Air 10/10/2024 9:57 AM EDT [facility] UMBILICAL CORD Tongue structure / Unknown 10/10/2024 9:45 AM EDT 10/10/2024 9:57 AM EDT us Marcus Flores DO LAB BLOOD ORDERABLES Final Result [facility] [address] [place] [address], [place] * (ABNORMAL) Cord Venous Blood Gas (10/10/2024 9:42 AM EDT) Only the most recent of2 resultswithin the time period is included. Sample type UMBILICAL CORD 10/10/2024 9:57 AM EDT [facility] pH, Cord Venous 7.342 10/10/2024 9:57 AM EDT [facility] PCO2 32.2 10/10/2024 9:57 AM EDT [facility] PO2 26 22 - 35 10/10/2024 9:57 AM EDT [facility] Base, Deficit -7.0(L) 0.0 - 2.0 mmol/L 10/10/2024 9:57 AM EDT [facility] HCO3, Venous Cord 17 mmol/L 10/10/2024 9:57 AM EDT [facility] O2 46.0 % 10/10/2024 9:57 AM EDT [facility] Dagoberto's test N/A 10/10/2024 9:57 AM EDT [facility] Sample site Jhonathan Cord 10/10/2024 9:57 AM EDT [facility] Source Of Oxygen Room Air 10/10/2024 9:57 AM EDT [facility] UMBILICAL CORD Tongue structure / Unknown 10/10/2024 9:42 AM EDT 10/10/2024 9:57 AM EDT us Marcus Flores DO LAB BLOOD ORDERABLES Final Result [facility] [address] R[place] [address], * Rubella IGG immune status (10/10/2024 5:18 AM EDT) RUBELLA IMMUNE IGG 2.1 <0.9 AI 10/10/2024 11:18 AM EDT [facility] Blood Venous blood / Unknown 10/10/2024 5:18 AM EDT 10/10/2024 5:18 AM EDT Narrative [facility] - 10/10/2024 11:18 AM EDT Interpretation < 0.8 NEGATIVE - considered not immune. 0.8 - 0.9 EQUIVOCAL - consider retesting with new specimen. > 0.9 POSITIVE - considered immune. us Michael Cavanaugh MD LAB BLOOD ORDERABLES Final R esult [facility] [address] [place] [address], * (ABNORMAL) CBC auto differential (10/10/2024 5:18 AM EDT) WBC 11.3(H) 4 - 11 x10E9/L 10/10/2024 6:53 AM EDT [facility] RBC Count 3.54(L) 3.8 - 5.2 X10E12/L 10/10/2024 6:53 AM EDT [facility] Hemoglobin 10.8(L) 11.7 - 15.5 g/dL 10/10/2024 6:53 AM EDT [facility] Hematocrit 32.1(L) 35 - 47 % 10/10/2024 6:53 AM EDT [facility] MCV 91 80 - 100 fL 10/10/2024 6:53 AM EDT [facility] MCH 30.6 27 - 34 pg 10/10/2024 6:53 AM EDT [facility] MCHC 33.7 32 - 36 g/dL 10/10/2024 6:53 AM EDT [facility] RDW 14.2 11.5 - 15 % 10/10/2024 6:53 AM EDT [facility] Platelet Count 159 150 - 450 X10E9/L 10/10/2024 6:53 AM EDT [facility] MPV 10.4 7 - 12 fL 10/10/2024 6:53 AM EDT [facility] Neutrophils % 87.9 % 10/10/2024 6:53 AM EDT [facility] Lymphocytes % 5.9 % 10/10/2024 6:53 AM EDT [facility] Monocytes % 6.1 % 10/10/2024 6:53 AM EDT [facility] Eosinophils % 0.0 % 10/10/2024 6:53 AM EDT [facility] Basophils % 0.1 % 10/10/2024 6:53 AM EDT [facility] Neutrophils Absolute (A) 9.9 10*3/uL 10/10/2024 6:53 AM EDT [facility] Lymphocytes Absolute 0.7 10*3/uL 10/10/2024 6:53 AM EDT [facility] Monocytes Absolute 0.7 10*3/uL 10/10/2024 6:53 AM EDT [facility] Eosinophils Absolute 0.0 10*3/uL 10/10/2024 6:53 AM EDT [facility] Basophils Absolute 0.0 10*3/uL 10/10/2024 6:53 AM EDT [facility] Differential Type AUTOMATED DIFFERENTIAL 10/10/2024 6:53 AM EDT [facility] Blood Venous blood / Unknown 10/10/2024 5:18 AM EDT 10/10/2024 5:18 AM EDT Michael Cavanaugh MD LAB BLOOD ORDERABLES Final R esult [facility] [address] [place] [address], * Hepatitis C(HCV) Ab w/ Reflex to PCR (10/10/2024 5:18 AM EDT) ANTI HCV W/PCR REFLX Non-Reacti ve Non-Reacti ve 10/10/2024 7:50 AM EDT [facility] Comment: If recent infection suspected, recommend repeat testing (>2 months). Zcbnco-vu-lmdrdz ratio is <1.0. Blood Venous blood / Unknown 10/10/2024 5:18 AM EDT 10/10/2024 5:18 AM EDT us Michael Cavanaugh MD LAB BLOOD ORDERABLES Final R esult [facility] [address] [place] [address], * Hepatitis B surface antigen (10/10/2024 5:18 AM EDT) HEPATITIS B SURF AG Non-Reacti ve Non-Reacti ve 10/10/2024 7:45 AM EDT [facility] Blood Venous blood / Unknown 10/10/2024 5:18 AM EDT 10/10/2024 5:18 AM EDT us Michael Cavanaugh MD LAB BLOOD ORDERABLES Final R esult [facility] [address] [place] [address], * (ABNORMAL) Comprehensive metabolic panel (10/10/2024 5:18 AM EDT) Only the most recent of3 resultswithin the time period is included. Pathologist [facility] SODIUM 136 134 - 146 mmol/L 10/10/2024 6:59 AM EDT [facility] POTASSIUM 3.9 3.5 - 5.0 mmol/L 10/10/2024 6:59 AM EDT [facility] CHLORIDE 105 98 - 109 mmol/L 10/10/2024 6:59 AM EDT [facility] CARBON DIOXIDE 20(L) 22 - 32 mmol/L 10/10/2024 6:59 AM EDT [facility] ANION GAP 11 5 - 15 mmol/L 10/10/2024 6:59 AM EDT [facility] BLOOD UREA NITROGEN 10 5 - 23 mg/dL 10/10/2024 6:59 AM EDT [facility] CREATININE 0.58 0.40 - 1.00 mg/dL 10/10/2024 6:59 AM EDT [facility] Comment:METHOD TRACEABLE TO IDMS STANDARD GLUCOSE 76 65 - 99 mg/dL 10/10/2024 6:59 AM EDT [facility] CALCIUM 8.6 8.5 - 10.5 mg/dL 10/10/2024 6:59 AM EDT [facility] TOTAL PROTEIN 5.2(L) 6.0 - 8.0 g/dL 10/10/2024 6:59 AM EDT [facility] ALBUMIN 3.3 3.2 - 5.3 g/dL 10/10/2024 6:59 AM EDT [facility] ALKALINE PHOSPHATASE 67 39 - 130 U/L 10/10/2024 6:59 AM EDT [facility] AST 24 <=41 U/L 10/10/2024 6:59 AM EDT [facility] ALT 24 <=31 U/L 10/10/2024 6:59 AM EDT [facility] BILIRUBIN,TOTAL 0.7 0.3 - 1.2 mg/dL 10/10/2024 6:59 AM EDT [facility] EGFR Non-Race Dependent >90 >=60 ml/min/1.7 3sq.m 10/10/2024 6:59 AM EDT [facility] Comment: Reported eGFR is based on the CKD-EPI 2020 equation that does not use a race coefficient. Blood Venous blood / Unknown 10/10/2024 5:18 AM EDT 10/10/2024 5:18 AM EDT us Michael Cavanaugh MD LAB BLOOD ORDERABLES Final R esult [facility] [address] [place] [address], * PM EPIDURAL (10/10/2024 2:54 AM EDT) Narrative Isabel Farias APRN-CRNA - 10/10/2024 2:54 AM EDT LEROY Adame 10/10/2024 2:55 AM Procedure: Epidural Block Patient Location: OB Start Time: 10/10/2024 2:32 AM End Time: 10/10/2024 2:52 AM IV In situ: Peripheral General Information and Staff: Service Provider: LEROY Adame Placed By: LEROY Adame Checklist: Patient Identified, IV Checked, Risks and Benefits Discussed, Surgical Consent, Monitors and Equipment Checked, Pre-op Evaluation and Timeout Performed Fire Risk Assessment Score: 0 Epidural: Patient Position: Sitting Prep: Chlorhexidine and Isopropyl Alcohol and Maximum Sterile Barriers Used Monitoring: Continuous Pulse Ox, Blood Pressure, Heart Rate, Glassware Maker Demonstrator and Monitor Oxygen Source: Room Air Approach: Midline Location: L3-L4 Injection Technique: DELILAH w/PFNS Injection Method: Catheter Secured with: Transparent Dressing and Taped Dressing Type: Transparent, Securing Device and Tape Local Infiltration: Lidocaine 1% Dose: 3 mL Needle and Epidural Catheter: Needle Type: Tuohy Flushed with PFNS 5 mL Needle Gauge: 17 G Needle Length: 9 cm OR DELILAH: 6.5 Catheter Size: 19 G Catheter at Skin Depth: 13 cm Number of Attempts: 1 Test Dose: Negative and Lidocaine 1.5% with Epinephrine 1:200,000 Dose: 3 mL Date and Time Given: 10/10/2024 2:47 AM Patient Tolerance: Tolerated Well Assessment: Sensory Level: T10 Injection Assessment: Negative Aspiration for Blood, No Paresthesia on Injection, Negative CSF flow and Negative for S/S of Intravenous or Intrathecal Injection Benjamin Emmanuel MD ANESTHESIA ORDERABLES Final Re sult * ABO Rh Repeat (10/09/2024 7:20 PM EDT) Only the most recent of2 resultswithin the time period is included. [facility] ABO A 10/10/2024 2:00 AM EDT [facility] RH Positive 10/10/2024 2:00 AM EDT [facility] Blood Venous blood / Unknown 10/09/2024 7:20 PM EDT 10/09/2024 7:20 PM EDT Marcus Flores DO BLOOD BANK TEST ORDER FLORA Final Result [facility] [address] [place] [address], [facility] [address] [place] [address], * Drug Screen, Urine (10/09/2024 9:34 AM EDT) [facility] AMPHETAMINE/METHAMP Negative Negative 10/09 12:01 PM T [facility] Comment:AMPH/METH screening cut off = 1000 ng/mL COCAINE METABOLITE Negative Negative 2024 12:01 PM [facility] Comment:Cocaine screening cu t off value = 300 ng/mL ECSTASY Negative Negative 10/09/2024 12:01 PM T [facility] Comment:Ecstasy screening cu t off value = 500 ng/mL METHADONE Negative Negative 10/09/2024 12:01 PM T [facility] Comment:Methadone screening cut off value = 300 ng/mL. OPIATES Negative Negative 10/09/2024 12:01 PM T [facility] Comment: Opiates screening cut off value = 300 ng/mL This test is used for the detection of codeine, hydrocodone (>1000 ng/mL), morphine and hydromorphone (>900 ng/mL) in urine. OXYCODONE Negative Negative 10/09/2024 12:01 PM [facility] Comment: Oxycodone screening cut off value = 300 ng/mL This test is used for the detection of oxycodone and oxymorphone in urine. PHENCYCLIDINE Negative Negative 10/09/2024 12:01 PM T [facility] Comment:Phencyclidine screen ing cut off value = 25 ng/mL CANNABINOIDS Negative Negative 10/09/2024 12:01 PM [facility] Comment:Cannabinoids/THC scr eening cut off value = 50 ng/mL Urine Barbiturates Negative Negative 2024 12:01 PM [facility] Comment:Barbiturates screeni ng cut off value = 200 ng/mL BENZODIAZEPINES Negative Negative 12:01 PM [facility] Comment:Benzodiazepines scre ening cut off value = 200 ng/mL Urine Urine specimen collection, clean catch / Unknown 10/09/2024 9:34 AM EDT 10/09/2024 11:13 AM EDT Lisa Caceres DO URINE ORDERABLES Final Result [facility] [address] [place] [address], [place] [phone] * Syphilis Total (Unknown Syphilis Status) (10/09/2024 9:25 AM EDT) Pathologist [facility] SYPHILIS TOTAL <0.2 <=0.8 AI 10/09/2024 1:12 PM EDT [facility] Blood Venous blood / Unknown 10/09/2024 9:25 AM EDT 10/09/2024 9:25 AM EDT Narrative [facility] - 10/09/2024 1:12 PM EDT NON REACTIVE No serologic evidence of infection to Treponema pallidum. Repeat testing may be considered in patients with suspected acute or primary syphilis in 2 to 4 weeks. Lisa Morris LAB BLOOD ORDERABLES Final Res ult Performing Organization Address City/[facility]/ZIP Co de Phone Number [facility] [address] [place] [address], [place] [phone] * LDH (10/09/2024 9:25 AM EDT) Only the most recent of2 resultswithin the time period is included. [facility] LDH 153 100 - 235 U/L 10/09/2024 10:26 AM EDT [facility] Blood Venous blood / Unknown 10/09/2024 9:25 AM EDT 10/09/2024 9:25 AM EDT Lisa Oco LAB BLOOD ORDERABLES Final Res ult [facility] [address] [place] [address], [place] [phone] * CBC without diff (10/09/2024 9:25 AM EDT) Only the most recent of2 resultswithin the time period is included. [facility] WBC 5.8 4 - 11 x10E9/L 10/09/2024 10:06 AM EDT [facility] RBC Count 4.00 3.8 - 5.2 X10E12/L 10/09/2024 10:06 AM EDT [facility] Hemoglobin 12.0 11.7 - 15.5 g/dL 10/09/2024 10:06 AM EDT [facility] Hematocrit 35.9 35 - 47 % 10/09/2024 10:06 AM EDT [facility] MCV 90 80 - 100 fL 10/09/2024 10:06 AM EDT [facility] MCH 30.0 27 - 34 pg 10/09/2024 10:06 AM EDT [facility] MCHC 33.5 32 - 36 g/dL 10/09/2024 10:06 AM EDT [facility] RDW 14.6 11.5 - 15 % 10/09/2024 10:06 AM EDT [facility] Platelet Count 180 150 - 450 X10E9/L 10/09/2024 10:06 AM EDT [facility] MPV 10.2 7 - 12 fL 10/09/2024 10:06 AM EDT [facility] Blood Venous blood / Unknown 10/09/2024 9:25 AM EDT 10/09/2024 9:25 AM EDT us Lisa Caceres DO LAB BLOOD ORDERABLES Final Res ult [facility] [address] [place] [address], * Type and screen(includes indirect michelle) (10/09/2024 9:25 AM EDT) Pathologist [facility] ABO A 10/09/2024 10:41 AM EDT [facility] RH Positive 10/09/2024 10:41 AM EDT [facility] Antibody Screen Negative 10/09/2024 10:41 AM EDT [facility] Blood Venous blood / Unknown 10/09/2024 9:25 AM EDT 10/09/2024 9:25 AM EDT Lisa Morris BLOOD BANK TEST ORDERABLES Danny kamar Result - Final Performing Organization Address City/[facility]/ZIP Co de Phone Number [facility] Deborah HARDEN [address] [place] [address], [facility] [address] [place] [address], * Uric acid (10/09/2024 9:25 AM EDT) Only the most recent of2 resultswithin the time period is included. URIC ACID 6.6 2.6 - 7.2 mg/dL 10/09/2024 10:26 AM EDT [facility] Blood Venous blood / Unknown 10/09/2024 9:25 AM EDT 10/09/2024 9:25 AM EDT [facility] Clayton Morris LAB BLOOD ORDERABLES Final Res ult Performing Organization Address City/[facility]/ZIP Co de Phone Number [facility] [address] [place] [address], * nonstress test - Maternal Medicine (10/08/2024 1:33 PM EDT) Narrative [facility] - 10/08/2024 1:33 PM EDT Patient Name: Natalia Arias Patient : 2000 NST Objective Findings: Variability: Moderate Decelerations: Variable Accelerations: Yes Acoustic Stimulator: No Baseline: 140 BPM Uterine Irritability: Yes Contractions: Irregular (patient states tolerable) Comments: FKC, labor precautions, and bleeding precautions reviewed with patient. Patient verbalizes understanding. 0841 rn applies spo2 monitor. Patient denies uti s/s, abnormal discharge, or recent sex. Patient states she has an induction scheduled today 10/06/24. Patient has had increased heart rate during the and completed testing. Patient denies chest pain, sob, or diizziness. Patient states she does feel a little more anxious today due to the induction. rn keeps readjusting toco as it seems to not be working properly. rn palpates and patient feels ctx irregularly. NST Interpretation: Nonstress Test Interpretation: Reactive (Sahara aWn MD) Fetus B: Baseline Fetus B: 135 BPM Variability Fetus B: Moderate Accelerations Fetus B: Yes Decelerations Fetus B: None Acoustic Stimulator Fetus B: No Fetus B Provider Interpretation: Nonstress Test Interpretation Fetus B: Reactive (Sahara Wan MD) NST performed by: Elza Curran RN 10/08/2024 us Marianne Moreira MD OB GYNE ORDERABLES Final Result Performing Organization Address City/[facility]/ZIP Co de Phone Number [facility] * nonstress test - Maternal Medicine (10/04/2024 3:15 PM EDT) Narrative [facility] - 10/04/2024 3:15 PM EDT Patient Name: Natalia Arias Patient : 2000 NST Objective Findings: Variability: Moderate Decelerations: None Accelerations: Yes Acoustic Stimulator: No Baseline: 135 BPM Uterine Irritability: Yes Comments: FKC, labor precautions, and bleeding precautions reviewed with patient. Patient verbalizes understanding. Patient denies uti s/s, abnormal discharge, or recent sex. Patient states she has an induction scheduled on 10/06/24. Dr Curtis notified of patients bp and patient talking during bp. No new orders. Patient monitors her bp at home. NST Interpretation: Nonstress Test Interpretation: Reactive (Kentrell Curtis MD) Fetus B: Baseline Fetus B: 130 BPM Variability Fetus B: Moderate Accelerations Fetus B: Yes Decelerations Fetus B: None Acoustic Stimulator Fetus B: No Fetus B Provider Interpretation: Nonstress Test Interpretation Fetus B: Reactive (Kentrell Curtis MD) NST performed by: Elza Curran RN 10/04/2024 us Marianne Moreira MD OB GYNE ORDERABLES Final Result Performing Organization Address City/[facility]/ZIP Co de Phone Number [facility] * US MFM LMTD OB, 1 OR MORE FETUS (10/04/2024 10:54 AM EDT) Only the most recent of4 resultswithin the time period is included. Anatomical Region Laterality Modality OB-FLOOR REFINISHER Ultrasound 10/04/2024 9:31 AM EDT Narrative 10/04/2024 2:38 PM EDT NAME: BELGICA RODRIGUEZ : 2000 SEX: F Accession Number: [id number] ORDERING PHYSICIAN: SAHARA WAN REFERRING PHYSICIAN: MARCUS FLORES Coding ----- --------- Procedures 91839: Limited OB / DANIEL, 1 or More Fetuses 68676: Doppler velocimetry, ; umbilical artery. 2 33961: Doppler velocimetry, ; middle cerebral artery. 2 Indication ----- --------- Otero-Di twin , Twin-twin transfusion, Supervision of high risk -Twin A: right sided AO and left sided ductus ateriosus, bilateral club feet, Twin B: CVI, cavum vergae, closed lip schiezencephaly. Otero-Di twin , Twin-twin transfusion, Supervision of high risk -Twin A: right sided AO and left sided ductus ateriosus, bilateral club feet, Twin B: CVI, cavum vergae, closed lip schiezencephaly. History ----- --------- OB History 1. Para 0 [id number] Maternal Assessment ----- --------- Physical Exam Height 168 cm, 5 ft 6 in Method ----- --------- Transabdominal ultrasound examination, View: Sufficient ----- --------- Twin . Number of fetuses: 2. Monochorionic-diamniotic Dating ----- --------- LMP on: 01/18/2024 GA by LMP 37 w + 1 d PRISCILLA by LMP: 10/24/2024 Previous Ultrasound on: 04/09/2024 Type of prior assessment: GA GA at prior assessment date 10 w + 1 d GA by previous U/S 35 w + 4 d PRISCILLA by previous Ultrasound: 11/04/2024 Assigned: based on ultrasound (GA), selected on 05/25/2024 Assigned GA 35 w + 4 d Assigned PRISCILLA: 11/04/2024 Fetus A: General Evaluation ----- --------- Cardiac activity Present. FHR 143 bpm. Presentation: cephalic Placenta: Placental site: posterior, away from cervical os Amniotic fluid: Amount of AF: normal amount, normal amount. MVP 3.8 cm Fetus B: General Evaluation ----- --------- Cardiac activity Present. FHR 146 bpm. Presentation: cephalic Placenta: Placental site: posterior, away from cervical os Amniotic fluid: Amount of AF: normal amount, normal amount. MVP 3.7 cm Fetus A: Anatomy ----- --------- The following structures appear normal: Abdomen: Stomach. Bladder. Fetus B: Anatomy ----- --------- The following structures appear normal: Abdomen Stomach. Bladder. Fetus A: Doppler ----- --------- Umbilical Artery: PI 0.70 14% Ebbing PS -60.75 cm/s TAmax -45.97 cm/s MD -31.24 cm/s S / D 2.08 23% Keysha Mid Cerebral Artery: PI 1.49 8% Ebbing RI [facility]76 55[facility] 41.41 cm/s PS 0.79 MoM ED 9.87 cm/s TAmax 22.02 cm/s 36% Ebbing CPR PI 2.13 35% Ebbing Fetus B: Doppler ----- --------- Umbilical Artery: PI 1.07 93% Ebbing PS -40.17 cm/s TAmax -25.30 cm/s MD -13.29 cm/s S / D 3.02 81% Keysha Mid Cerebral Artery: PI 1.86 44% Ebbing RI 0.82 84% [facility] PS 67.32 cm/s PS 1.28 MoM ED 12.25 cm/s TAmax 30.58 cm/s 89% Ebbing CPR PI 1.74 10% Ebbing Maternal Structures ----- --------- Uterus Visualized Cervix Suboptimal Approach - Transabdominal Cul de Sac Suboptimal Impression ----- --------- Monochorionic-diamniotic twin consistent with 35w 4d with an PRISCILLA of 11/04/2024. Twin A is LOWER LEFT. bladder and stomach appear grossly normal in size and shape. Umbilical artery S/D ratio in normal range. MCA PSV 0.79 MoM is in the unremarkable range for the evaluation of anemia. 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 Amniotic fluid MVP measures 3.8 cm. Twin B is UPPER RIGHT. bladder and stomach appear grossly normal in size and shape. Umbilical artery S/D ratio in normal range. MCA PSV 1.28 MoM is in the unremarkable range for the evaluation of anemia. Known anomalies include cerebral ventriculomegaly, CVI cyst, not evaluated today. 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 Amniotic fluid MVP measures 3.7 cm. Recommendations ----- --------- Continue testing as previously recommended. TTTS surveillance follow up every 2 weeks with growth of each fetus every 4 weeks. The patient is scheduled in two weeks for growth and Dopplers. Subsequent follow up or other follow up as clinically determined by primary OB provider unless otherwise specified by MFM. Results forwarded to ordering provider so they can follow up with the patient as necessary. Procedure Note Kentrell Curtis MD - 10/04/2024 NAME: BELGICA RODRIGUEZ : 2000 SEX: F Accession Number: [id number] ORDERING PHYSICIAN: SAHARA WAN REFERRING PHYSICIAN: MARCUS FLORES Coding ----- --------- Procedures 33665: Limited OB / DANIEL, 1 or More Fetuses 00360: Doppler velocimetry, ; umbilical artery. 2 55792: Doppler velocimetry, ; middle cerebral artery. 2 Indication ----- --------- Otero-Di twin , Twin-twin transfusion, Supervision of high riskpregnancy-Twin A: right sided AO and left sided ductus ateriosus, bilateral club feet, Twin B: CVI, cavum vergae, closed lipschiezencephaly. Otero-Di twin , Twin-twin transfusion, Supervision of high risk -Twin A: right sided AO andleft sided ductus ateriosus, bilateral club feet, Twin B: CVI, cavum vergae, closed lip schiezencephaly. History ----- --------- OB History 1. Para 0 [id number] Maternal Assessment ----- --------- Physical Exam Height 168 cm, 5 ft 6 in Method ----- --------- Transabdominal ultrasound examination, View: Sufficient ----- --------- Twin . Number of fetuses: 2. Monochorionic-diamniotic Dating ----- --------- LMP on: 01/18/2024 GA by LMP 37 w + 1 d PRISCILLA by LMP: 10/24/2024 Previous Ultrasound on: 04/09/2024 Type of prior assessment: GA GA at prior assessment date 10 w + 1 d GA by previous U/S 35 w + 4 d PRISCILLA by previous Ultrasound: 11/04/2024 Assigned: based on ultrasound (GA), selected on 05/25/2024 Assigned GA 35 w + 4 d Assigned PRISCILLA: 11/04/2024 Fetus A: General Evaluation ----- --------- Cardiac activity Present. FHR 143 bpm. Presentation: cephalic Placenta: Placental site: posterior, away from cervical os Amniotic fluid: Amount of AF: normal amount, normal amount. MVP 3.8 cm Fetus B: General Evaluation ----- --------- Cardiac activity Present. FHR 146 bpm. Presentation: cephalic Placenta: Placental site: posterior, away from cervical os Amniotic fluid: Amount of AF: normal amount, normal amount. MVP 3.7 cm Fetus A: Anatomy ----- --------- The following structures appear normal: Abdomen: Stomach. Bladder. Fetus B: Anatomy ----- --------- The following structures appear normal: Abdomen Stomach. Bladder. Fetus A: Doppler ----- --------- Umbilical Artery: PI 0.70 14% Ebbing PS -60.75 cm/s TAmax -45.97 cm/s MD -31.24 cm/s S / D 2.08 23% Keysha Mid Cerebral Artery: PI 1.49 8% Ebbing RI 0.76 55% Bahlmann PS 41.41 cm/s PS 0.79 MoM ED 9.87 cm/s TAmax 22.02 cm/s 36% Ebbing CPR PI 2.13 35% Ebbing Fetus B: Doppler ----- --------- Umbilical Artery: PI 1.07 93% Ebbing PS -40.17 cm/s TAmax -25.30 cm/s MD -13.29 cm/s S / D 3.02 81% Keysha Mid Cerebral Artery: PI 1.86 44% Ebbing RI 0.82 84% [facility] PS 67.32 cm/s PS 1.28 MoM ED 12.25 cm/s TAmax 30.58 cm/s 89% Ebbing CPR PI 1.74 10% Ebbing Maternal Structures ----- --------- Uterus Visualized Cervix Suboptimal Approach - Transabdominal Cul de Sac Suboptimal Impression ----- --------- Monochorionic-diamniotic twin consistent with 35w 4d with an EDDof 11/04/2024. Twin A is LOWER LEFT. bladder and stomach appear grossly normal in size and shape. Umbilical artery S/D ratio in normal range. MCA PSV 0.79 MoM is in the unremarkable range for the evaluation of fetalanemia. Known anomalies include right sided aortic arch and bilateralclubbed feet. Amniotic fluid MVP measures 3.8 cm. Twin B is UPPER RIGHT. bladder and stomach appear grossly normal in size and shape. Umbilical artery S/D ratio in normal range. MCA PSV 1.28 MoM is in the unremarkable range for the evaluation of fetalanemia. Known anomalies include cerebral ventriculomegaly, CVI cyst, notevaluated today. 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 Amniotic fluid MVP measures 3.7 cm. Recommendations ----- --------- Continue testing as previously recommended. TTTS surveillance follow up every 2 weeks with growth of each fetus every4 weeks. The patient is scheduled in two weeks for growth and Dopplers. Subsequent follow up or other follow up as clinically determined byprimary OB provider unless otherwise specified by MFM. Results forwarded to ordering provider so they can follow up with thepatient as necessary. us Sahara Wan MD IMG US ORDERABLES Final Result * nonstress test - Maternal Medicine (10/01/2024 4:25 PM EDT) Narrative [facility]GYN - 10/01/2024 4:25 PM EDT Patient Name: Natalia Arias Patient : 2000 NST Objective Findings: Variability: Moderate Decelerations: None Accelerations: Yes Acoustic Stimulator: No Baseline: 135 BPM Uterine Irritability: Yes (patient does not feel during nst) Comments: FKC, labor precautions, and bleeding precautions reviewed with patient. Patient verbalizes understanding. Patient denies uti s/s, abnormal discharge, or recent sex. Patient states she does have a yeast infection and taking monistat. NST Interpretation: Fetus B: Baseline Fetus B: 135 BPM Variability Fetus B: Moderate Accelerations Fetus B: Yes Decelerations Fetus B: Variable Acoustic Stimulator Fetus B: No Fetus B Provider Interpretation: Nonstress Test Interpretation Fetus B: Reactive (Kentrell Curtis MD) NST performed by: Elza Curran RN 10/01/2024 Marianne Moreira MD OB GYNE ORDERABLES Final Result Performing Organization Address City/[facility] Co de Phone Number [facility]OBGYN * nonstress test - Maternal Medicine (09/27/2024 3:25 PM EDT) Narrative [facility]N - 09/27/2024 3:25 PM EDT Patient Name: Natalia Arias Patient : 2000 NST Objective Findings: Variability: Moderate Decelerations: None Accelerations: Yes Acoustic Stimulator: No Baseline: 150 BPM Uterine Irritability: Yes Contractions: Irregular (RARE CONTRACTIONS WITH ONLY ONE FELT BY PATIENT.) Comments: KICK COUNT, BLEEDING AND LABOR PRECAUTIONS REVIEWED. PATIENT VERBALIZES AN UNDERSTANDING RARE CONTRACTIONS WITH ONLY ONE BEING FELT BY PATIENT. NST Interpretation: Fetus B: Baseline Fetus B: 140 BPM Variability Fetus B: Moderate Accelerations Fetus B: Yes Decelerations Fetus B: None Acoustic Stimulator Fetus B: No Fetus B Provider Interpretation: Nonstress Test Interpretation Fetus B: Reactive (Kentrell Curtis MD) NST performed by: Kira ashley RN 09/27/2024 Marianne Moreira MD OB GYNE ORDERABLES Final Result Performing Organization Address City/[facility] Co de Phone Number [facility]GYN * Chlamydia/Gonorrhoeae by PCR, Urine (09/27/2024 10:43 AM EDT) Chlamydia by PCR, Urine Negative Negative^N egative 09/28/2024 11:35 AM EDT [facility] Comment: Chlamydia trachomatis not detected by nucleic acid amplification. This does not exclude the possibility of infection because results are dependent on adequate specimen collection. Gonorrhoeae by PCR, Urine Negative Negative^N egative 09/28/2024 11:35 AM EDT [facility] Comment: Neisseria gonorrhoeae not detected by nucleic acid amplification. This does not exclude the possibility of infection because results are dependent on adequate specimen collection. Urine Urine / Unknown 09/27/2024 1 0:43 AM EDT 09/27/2024 2:03 PM EDT us Marianne Moreira MD MICROBIOLOGY - GENERAL O RDERABLES Final Result [place] [facility] [address], [address] [place] [address] * (ABNORMAL) Vaginitis Panel PCR (09/27/2024 9:53 AM EDT) Bact. Vaginosis DNA Not Detected Not Detected^No t Detected 09/27/2024 9:19 PM EDT [facility] Comment: Qualitative results are reported based on detection and quantitation of targeted organism markers which include: Lactobacillus spp. (L. crispatus and L. jensenii), Gardnerella vaginalis, Atopobium vaginae, Bacterial Vaginosis Associated Bacteria-2 (BVAB-2) and Megasphaera-1 Becky Species DNA Detected(A) Not Detected^No t Detected 09/27/2024 9:19 PM EDT [facility] Comment: Becky species result based on detection of one or more of the following species: C. albicans, C. tropicalis, C. parapsilosis or C. dubliniensis Becky Krusei DNA Not Detected Not Detected^No t Detected 09/27/2024 9:19 PM EDT [facility] Comment:No Becky krusei de tected Becky Glabrata DNA Not Detected Not Detected^No t Detected 09/27/2024 9:19 PM EDT [facility] Comment:No Becky glabrata detected Trichomonas Vag DNA Not Detected Not Detected^No t Detected 09/27/2024 9:19 PM EDT [facility] Comment: No Trichomonas vaginalis detected NOTE BD MAX Vaginal Panel has not been evaluated for patients under 18 years old. Results for these patients should be reviewed and assessed in accordance with clinical presentation to determine patient diagnosis. Vaginal structure / Unknown 09/27/2024 9:53 AM EDT 09/27/2024 2:03 PM EDT Marianne Moreira MD MICROBIOLOGY - GENERAL O RDERABLES Final Result [facility] [address], [address] [place] [address] * Strep B screen (09/27/2024 9:53 AM EDT) Culture NEGATIVE FOR GROUP B STREPTOCOCCUS BY NUCLEIC ACID AMPLIFICATION 09/28/2024 2:30 PM EDT [facility] VAGRCL 09/27/2024 9:53 AM EDT 09/27/2024 2:28 PM EDT Marianne Moreira MD MICROBIOLOGY - GENERAL O RDERABLES Final Result Performing Organization Address [facility] Co de Phone Number [facility] [address], [address] [place] [address] * nonstress test - Maternal Medicine (09/24/2024 4:22 PM EDT) Narrative ASOBG - 09/24/2024 4:22 PM EDT Patient Name: Natalia Arias Patient : 2000 NST Objective Findings: Variability: Moderate Decelerations: None Accelerations: Yes Acoustic Stimulator: No Baseline: 145 BPM Uterine Irritability: Yes Contractions: Not present Comments: FKC, labor/bleeding precautions reviewed, pt verbalized understanding NST Interpretation: Nonstress Test Interpretation: Reactive (Kentrell Curtis MD) Fetus B: Baseline Fetus B: 140 BPM Variability Fetus B: Moderate Accelerations Fetus B: Yes Acoustic Stimulator Fetus B: Yes (x1) Fetus B Provider Interpretation: Nonstress Test Interpretation Fetus B: Reactive (Kentrell Curtis MD) NST performed by: Coby peralta RN 09/24/2024 us Marianne Moreira MD OB GYNE ORDERABLES Final Result Performing Organization Address City/[facility] Co de Phone Number [facility] * nonstress test - Maternal Medicine (09/20/2024 1:06 PM EDT) Narrative [facility] - 09/20/2024 1:06 PM EDT Patient Name: Natalia Arias Patient : 2000 NST Objective Findings: Variability: Moderate Decelerations: None Accelerations: Yes Acoustic Stimulator: Yes (x1) Baseline: 150 BPM Uterine Irritability: Yes Comments: FKC, labor precautions, and bleeding precautions reviewed with patient. Patient verbalizes understanding. Lots audible FM noted. Baby A to LLQ and Baby B to RUQ. Patient states she ate before she came to appt. Patient HR 110-125. This is unchanged from previously and patient went to [facility] for eval and all testing wnl. Patient denies chest pain, sob, dizziness. Rukhsana Smith cnm notified of patients first bp and retake and etc. No new orders. NST Interpretation: Nonstress Test Interpretation: Reactive (Rukhsana Smith, DISTRICT SALES LEADER-CNM) Fetus B: Baseline Fetus B: 145 BPM Variability Fetus B: Moderate Accelerations Fetus B: Yes Decelerations Fetus B: None Acoustic Stimulator Fetus B: Yes (x1) Fetus B Provider Interpretation: Nonstress Test Interpretation Fetus B: Reactive (Rukhsana Smith, DISTRICT SALES LEADER-CN) NST performed by: Elza Curran RN 09/20/2024 Marianne Moreira MD OB GYNE ORDERABLES Final Result [facility] * nonstress test - Maternal Medicine (09/17/2024 2:35 PM EDT) Narrative [facility]N - 09/17/2024 2:35 PM EDT Patient Name: Natalia Arias Patient : 2000 NST Objective Findings: Variability: Moderate Decelerations: Variable Accelerations: Yes Acoustic Stimulator: No Baseline: 145 BPM Uterine Irritability: No Contractions: Not present Comments: FKC, labor precautions, and bleeding precautions reviewed with patient. Patient verbalizes understanding. Lots audible FM noted. Baby A to LLQ and Baby B to RUQ. Patient states she ate before she came to appt. NST Interpretation: Nonstress Test Interpretation: Reactive (Sahara Wan MD) Fetus B: Baseline Fetus B: 140 BPM Variability Fetus B: Moderate Accelerations Fetus B: Yes Decelerations Fetus B: Variable Acoustic Stimulator Fetus B: No Fetus B Provider Interpretation: Nonstress Test Interpretation Fetus B: Reactive (Sahara Wan MD) NST performed by: Elza Curran RN 09/17/2024 us Marianne Moreira MD OB GYNE ORDERABLES Final Result [facility] * ECG 12 lead (09/13/2024 11:59 AM EDT) 09/13/2024 11:5 9 AM EDT Narrative GLORIA - 09/13/2024 3:08 PM EDT us Constance Fernandez DISTRICT SALES LEADER-CNM ECG ORDERABLES Final R esult Performing Organization Address City/[facility]/ZIP Co de Phone Number [facility] * nonstress test - Maternal Medicine (09/13/2024 11:51 AM EDT) Narrative [facility]GYN - 09/13/2024 11:51 AM EDT Patient Name: Natalia Arias Patient : 2000 NST Objective Findings: Variability: Moderate Decelerations: None Accelerations: Yes Acoustic Stimulator: No Baseline: 140 BPM Uterine Irritability: Yes Comments: FKC, labor precautions, and bleeding precautions reviewed with patient. Patient verbalizes understanding. Lots audible FM noted. Baby A to LLQ and Baby B to RUQ. Patient states she does not feel pain or tightening during nst today. Patient denies chest pain or sob. 929 rn applies spo2 monitor. Patient states she feels dizzy nad lightheaded. RN gets patient cold washclosths. RN turns patient to right side. Patient taking deep breaths. 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 Lots audible FM noted.Difficulty tracing d/t lots audible fm and patient on side. rn readjusts efm when in room. [address] rn to go get dr patterson. Kira rn notified. 1013 questionable maternal hr? rn not in room and getting a dr. Malone and Louisa rn in room and notified. 1028 Dr Patterson to room to eval patient and discuss POC. Patient verbalizes understanding. V.O. given for patient to get usn and then go to [facility] for eval. n and Lacey rn notified. 1032 patient off efm and to wheelchair and rn takes patient to usn room 5 to await usn and rn gives patient call light and informs hossein rn. patients dad at stretcher side. rn calls report to Han CAZARES . NST Interpretation: Nonstress Test Interpretation: Reactive (Toya Patterson MD) Fetus B: Baseline Fetus B: 140 BPM Variability Fetus B: Moderate Accelerations Fetus B: Yes Decelerations Fetus B: None Acoustic Stimulator Fetus B: No Fetus B Provider Interpretation: Nonstress Test Interpretation Fetus B: Reactive (Toya Patterson MD) NST performed by: Elza Curran RN 09/13/2024 us Marianne Moreira MD OB GYNE ORDERABLES Final Result [facility] * Protein creat ratio (09/13/2024 11:31 AM EDT) Urine creatinine 66.97 mg/dL 09/13/2024 12:53 PM EDT [facility] Protein Urine Random 90 <120 mg/L 09/13/2024 12:53 PM EDT [facility] U/Pro/Reciprocating Drill Operator Ratio Calc 0.13 <0.2 09/13/2024 12:53 PM EDT [facility] Comment:Nephrotic Syndrome i s associated with ratios >3.5 Urine / Unknown 09/13/2024 1 1:31 AM EDT 09/13/2024 12:04 PM EDT us Constance Fernandez DISTRICT SALES LEADER-RITAM URINE ORDERABLES Final Result [facility] [address], [address] [place] [address] * (ABNORMAL) Urinalysis (09/13/2024 11:31 AM EDT) Color YELLOW YELLOW^Y ELLOW 09/13/2024 12:42 PM EDT [facility] Turbidity CLEAR CLEAR^CL EAR 09/13/2024 12:42 PM EDT [facility] Specific gravity 1.012 1.003 - 1.035 09/13/2024 12:42 PM EDT [facility] Nitrite Negative Negative ^Negativ e 09/13/2024 12:42 PM EDT [facility] Ph urine 6.5 5.0 - 8.5 09/13/2024 12:42 PM EDT [facility] Leukocyte esterase Trace(A) Negative ^Negativ e 09/13/2024 12:42 PM EDT [facility] Protein Negative Negative ^Negativ e mg/dL 09/13/2024 12:42 PM EDT [facility] Glucose, Ur Negative Negative ^Negativ e mg/dL 09/13/2024 12:42 PM EDT [facility] Ketones urine Negative Negative ^Negativ e mg/dL 09/13/2024 12:42 PM EDT [facility] Urobilinogen <1.1 <1.1 eu/dL 09/13/2024 12:42 PM EDT [facility] Bilirubin, urine Negative Negative ^Negativ e 09/13/2024 12:42 PM EDT [facility] Hemoglobin Negative Negative ^Negativ e 09/13/2024 12:42 PM EDT [facility] Microspopic Urine URINE RECEIVED WITHOUT PRESERVATIVE-DE LAYS IN TRANSPORT MAY AFFECT RESULTS.INTERPR ET WITH CAUTION AND CLINICAL CORRELATION IS RECOMMENDED. 09/13/2024 12:43 PM EDT [facility] Mucus, UA PRESENT(A) NONE^NON E 09/13/2024 12:42 PM EDT [facility] RBC <1 0 - 5 /hpf 09/13/2024 12:42 PM EDT [facility] Squamous epithelium 2 0 - 5 /hpf 09/13/2024 12:42 PM EDT [facility] WBC 3 0 - 5 /hpf 09/13/2024 12:42 PM EDT [facility] Urine / Unknown 09/13/2024 1 1:31 AM EDT 09/13/2024 12:04 PM EDT us Constance H Rebecca DISTRICT SALES LEADER-CNM URINE ORDERABLES Edited Result - Final Performing Organization Address City/[facility]/ZIP Co de Phone Number [facility] [address], [address] [place] [address] * TSH with Reflex (09/13/2024 11:24 AM EDT) TSH 1.69 0.49 - 4.67 uIU/mL 09/13/2024 3:03 PM EDT [facility] PLASMA 09/13/2024 11:2 4 AM EDT 09/13/2024 11:25 AM EDT [facility] Rebecca DISTRICT SALES LEADER-CN LAB BLOOD ORDERABLES Fi nal Result Performing Organization Address [facility]/ZIP Co de Phone Number [facility] [address], [address] [place] [address] * (ABNORMAL) Magnesium (09/13/2024 11:24 AM EDT) Magnesium 1.7(L) 1.8 - 2.6 mg/dL 09/13/2024 12:17 PM EDT [facility] PLASMA 09/13/2024 11:2 4 AM EDT 09/13/2024 11:25 AM EDT [facility] Rebecca DISTRICT SALES LEADER-CN LAB BLOOD ORDERABLES Fi nal Result Performing Organization Address City/[facility]/ZIP Co de Phone Number [facility] [address], [address] [place] [address] * B-type natriuretic peptide (09/13/2024 11:23 AM EDT) BNP 12 <100.0 pg/mL 09/13/2024 7:03 PM EDT [facility] PLASMA 09/13/2024 11:2 3 AM EDT 09/13/2024 11:24 AM EDT us Constance Fernandez DISTRICT SALES LEADER-CNM LAB BLOOD ORDERABLES Fi nal Result [place] [facility] [address] [place] [address] from Last 3 Months Insurance [employer] Advance Directives * Full Code (Latest Code Status on File) Date Activated Date Inactivated Comments 10/09/2024 9:07 AM 10/13/2024 8:55 PM * Full Code Date Activated Date Inactivated Comments 09/13/2024 1:13 PM 09/13/2024 8:23 PM
--- OUTSIDE RECORDS SUMMARY | 2024-12-12 14:38 | XMS_ITS | Encounter Summary ---
Author Organization [facility] tem Address [id number] [address] [place] [address] Care Team Providers Care Immigration Consultant Name Role Phone Unavailable Primary Care Provider Unavailabl e Reason for Referral * Diagnostic Imaging (Routine) - Pending Review Specialty Diagnoses / Procedures Referred By Contac t Referred To Contact Maternal and Medicine Diagnoses Monochorionic diamniotic twin , antepartum Club foot of fetus affecting antepartum care of mother, fetus 1 of multiple gestation cardiac anomaly complicating , antepartum, fetus 1 Placental abnormality in second trimester Procedures US MF with or without consult Kentrell Storey MD [address] [facility] [place] [address] Phone: tel: fax: Maternal- Medicine at [facility] [address] [place] [address] Phone: tel: fax: Referral ID Status Reason Start Date Expiration Date V isits Requested Visits Authorized [id number] Pending Review 07/31/2024 07/31/2025 1 1 * Diagnostic Imaging (Routine) - Pending Review Specialty Diagnoses / Procedures Referred By Contac t Referred To Contact Maternal and Medicine Diagnoses Monochorionic diamniotic twin , antepartum Club foot of fetus affecting antepartum care of mother, fetus 1 of multiple gestation cardiac anomaly complicating , antepartum, fetus 1 Placental abnormality in second trimester Procedures US MFM with or without consult Kentrell Storey MD [address], [address] [place] [address] Phone: tel: fax: Maternal- Medicine at [facility] [address] [place] [address] Phone: tel: fax: Referral ID Status Reason Start Date Expiration Date V isits Requested Visits Authorized [id number] Pending Review 07/31/2024 07/31/2025 1 1 Encounter Details Date Type Department Care Team (Late st Contact Info) Description 07/31/2024 Orders Only Maternal- Medicine at [facility] [address] [facility] [place] [place] [address] Naya Gandhi, [employer] ATTENDANT Monochorionic diamniotic twin , antepartum (Primary Dx); Club foot of fetus affecting antepartum care of mother, fetus 1 of multiple gestation; cardiac anomaly complicating , antepartum, fetus 1; Placental abnormality in second trimester Social History Tobacco Use Types Packs/Day Years Used Date Smoking Tobacco: Never Smokeless Tobacco: Never Alcohol Use Standard Drinks/Week Comments Not Currently 0 (1 standard drink = 0.6 oz pur e alcohol) Overall Financial Resource Strain (CARDIA) Answe r Date Recorded How hard is it for you to pa y for the very basics like food, housing, medical care, and heating? Not very hard 06/09/2024 PHQ-2 Answer Date Recorded Total Score 0 06/09/2024 Housing Instability Answer Date Recorde d Are you worried or concerned that in the next two months you may not have stable housing that you own, rent or stay in as a part of a household? No 06/09/2024 Childcare Answer Date Recorded Do problems getting child ca re make it difficult for you to work or study? No 06/09/2024 Hunger Screening Answer Date Recorded Within the past 12 months we worried whether our food would run out before we got money to buy more. Never True 07/26/2024 Within the past 12 months th e food we bought just didn't last and we didn't have money to get more. Never True 07/26/2024 Comments Yes Sex and Gender Information Value Date Recorded Sex Assigned at Not on file Legal Sex Female 9:56 AM EST Gender Identity Not on file Sexual Orientation Not on file documented as of this encounter Plan of Treatment Not on file documented as of this encounter Results * US MFM LMTD OB, 1 OR MORE FETUS (08/23/2024 2:29 PM EDT) Anatomical Region Laterality Modality OB-DATA INTEGRATION ANALYST Ultrasound 08/23/2024 1:09 PM EDT Narrative 08/23/2024 4:06 PM EDT NAME: BELGICA RODRIGUEZ : 2000 SEX: F Accession Number: [id number] ORDERING PHYSICIAN: KENTRELL STOREY REFERRING PHYSICIAN: JAVON GARRIDO Coding ----- --------- Procedures 76186: Follow-up Ultrasound, per fetus. 2 95724: Doppler velocimetry, ; umbilical artery. 2 75436: Doppler velocimetry, ; middle cerebral artery. 2 64993: Doppler Ductus Venosus. 2 Indication ----- --------- Yellowstone-Di twin , Twin-twin transfusion, Supervision of high risk -Twin A: right sided AO and left sided ductus ateriosus, bilateral club feet, Twin B : placentomegaly, CVI and cavum vergae History ----- --------- OB History 1. Para 0 [id number] Maternal Assessment ----- --------- Physical Exam Height 168 cm, 5 ft 6 in. Weight 80 kg, 177 lb. BMI 28.57 kg/m Method ----- --------- Transabdominal ultrasound examination ----- --------- Twin . Number of fetuses: 2. Monochorionic-diamniotic Dating ----- --------- LMP on: 01/18/2024 GA by LMP 31 w + 1 d PRISCILLA by LMP: 10/24/2024 Previous Ultrasound on: 04/09/2024 Type of prior assessment: GA GA at prior assessment date 10 w + 1 d GA by previous U/S 29 w + 4 d PRISCILLA by previous Ultrasound: 11/04/2024 Ultrasound examination on: 08/23/2024 GA by U/S based upon: AC, BPD, Femur, HC GA by U/S 29 w + 3 d PRISCILLA by U/S: 11/05/2024 GA by U/S based upon (Fetus 2): AC, BPD, Femur, HC GA by U/S (Fetus 2) 28 w + 1 d PRISCILLA by U/S (Fetus 2): 11/14/2024 Assigned: based on ultrasound (GA), selected on 05/25/2024 Assigned GA 29 w + 4 d Assigned PRISCILLA: 11/04/2024 Fetus A: General Evaluation ----- --------- Cardiac activity Present. FHR 144 bpm. Presentation: lower, cephalic left Placenta: Placental site: posterior, away from cervical os Umbilical cord: Cord vessels: 3 vessel cord Amniotic fluid: Amount of AF: normal amount. MVP 3.2 cm Fetus B: General Evaluation ----- --------- Cardiac activity Present. FHR 148 bpm. Presentation: upper, cephalic right Placenta: Placental site: posterior, away from cervical os Umbilical cord: Cord vessels: 3 vessel cord Amniotic fluid: Amount of AF: normal amount. MVP 4.0 cm Fetus A: Biometry ----- --------- BPD 77.3 mm 31w 0d 81% Hadlock OFD 95.5 mm 30w 6d 81% Roberth HC 278.5 mm 30w 3d 42% Hadlock Cerebellum tr 34.4 mm 28w 6d 26% Hill AC 243.0 mm 28w 4d 17% Hadlock Femur 52.3 mm 27w 6d 4% Hadlock Humerus 47.9 mm 28w 1d 14% Roberth HC / AC 1.15 Weight Calculation: EFW 1,265 g 14% Hadlock EFW (lb,oz) 2 lb 13 oz EFW by Hadlock ([id number]) EFW discordance 1.3 % Head / Face / Neck Biometry: Cephalic index 0.81 70% Nicolaides Implementation Manager 7.5 mm CM 7.8 mm 74% Nicolaides Extremities / Bony Struc Biometry: FL / BPD 0.68 FL / HC 0.19 FL / AC 0.22 Tibia 46.5 mm 28w 2d 14% Roberth Fetus B: Biometry ----- --------- BPD 68.6 mm 27w 4d 2% Hadlock OFD 91.6 mm 29w 4d 49% Roberth HC 257.8 mm 28w 0d 1% Hadlock Cerebellum tr 33.5 mm 28w 2d 13% Hill AC 248.4 mm 29w 0d 29% Hadlock Femur 53.1 mm 28w 1d 7% Hadlock Humerus 48.2 mm 28w 2d 16% Roberth HC / AC 1.04 Weight Calculation: EFW 1,249 g 12% Hadlock EFW (lb,oz) 2 lb 12 oz EFW by Hadlock ([id number]) EFW discordance 1.3 % Head / Face / Neck Biometry: Cephalic index 0.75 11% Nicolaides Implementation Manager 8.3 mm CM 5.4 mm 11% Nicolaides Extremities / Bony Struc Biometry: FL / BPD 0.77 FL / HC 0.21 FL / AC 0.21 Tibia 46.3 mm 28w 1d 12% Roberth Fetus A: Anatomy ----- --------- The following structures appear normal: Head/Neck: Cranium. Lateral ventricles. Cavum septi pellucidi. Cerebellum. Cisterna magna. Heart/Thorax: 4-chamber view. Diaphragm. Abdomen: Stomach. Kidneys. Bladder. Fetus B: Anatomy ----- --------- The following structures appear normal: Head / Neck Cranium. Lateral ventricles. Cavum septi pellucidi. Cerebellum. Cisterna magna. Heart / Thorax 4-chamber view. Diaphragm. Abdomen Stomach. Kidneys. Bladder. Fetus A: Doppler ----- --------- Umbilical Artery: normal PI 0.80 12% Ebbing PS -41.16 cm/s TAmax -27.86 cm/s MD -17.79 cm/s S / D 2.21 11% Keysha Mid Cerebral Artery: normal PI 1.72 9% Ebbing RI 0.80 49% Bahlmann PS 39.10 cm/s PS 0.99 MoM ED 7.87 cm/s TAmax 17.92 cm/s 59% Ebbing CPR PI 2.15 41% Ebbing Ductus Venosus: normal Fetus B: Doppler ----- --------- Umbilical Artery: normal PI 1.13 84% Ebbing PS -59.71 cm/s TAmax -40.20 cm/s MD -23.77 cm/s S / D 3.49 79% Keysha Mid Cerebral Artery: normal PI 1.74 10% Ebbing RI 0.79 46% Bahlmann PS 41.74 cm/s PS 1.05 MoM ED 8.68 cm/s TAmax 20.43 cm/s 80% Ebbing CPR PI 1.54 5% Ebbing Ductus Venosus: normal Maternal Structures ----- --------- Uterus Visualized Cervix Suboptimal Approach - Transabdominal Right Ovary Not visualized Left Ovary Not visualized Cul de Sac Suboptimal Impression ----- --------- Monochorionic-diamniotic twin consistent with 29w 4d with an PRISCILLA of 11/04/2024. Twin A is lower, cephalic left. Intrauterine with appropriate interval growth. EFW measures at the 14%, AC measures at the 17%. Umbilical artery S/D ratio in normal range. MCA PSV measures 39.10 cm/s, 0.99 MoM which is in the unremarkable range for the evaluation of anemia. Ductus venosus demonstrates continuous forward flow. Right sided aortic arch and bilateral clubbed feet were not appreciated on today's exam. bladder and stomach are identified. Amniotic fluid MVP is 3.2 cm. Twin B is upper, cephalic right. Intrauterine with appropriate interval growth. EFW measures at the 12%, AC measures at the 29%. The HC measures less than the 3rd percentile for the gestational age but reference biometric measurement within 2 SD of the mean (Carlosak and colleagues, 1984). Umbilical artery S/D ratio in normal range. MCA PSV measures 41.74 cm/s, 1.05 MoM which is in the unremarkable range for the evaluation of anemia. Ductus venosus demonstrates continuous forward flow. Previously identified cerebral ventriculomegaly is not appreciated on today's exam. 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 Previously seen suspected CVI cyst is not appreciated on today's exam. bladder and stomach are identified. Amniotic fluid MVP is 3.9 cm. Discordance is 1.3%. Recommendations ----- --------- Continue testing as previously recommended. Subsequent follow up or other follow up as clinically determined by primary OB provider unless otherwise specified by M. Results forwarded to ordering provider so they can follow up with the patient as necessary. Procedure Note Kentrell Storey MD - 08/23/2024 NAME: BELGICA RODRIGUEZ : 2000 SEX: F Accession Number: [id number] ORDERING PHYSICIAN: KENTRELL STOREY REFERRING PHYSICIAN: JAVON GARRIDO Coding ----- --------- Procedures 73361: Follow-up Ultrasound, per fetus. 2 77099: Doppler velocimetry, ; umbilical artery. 2 99098: Doppler velocimetry, ; middle cerebral artery. 2 03277: Doppler Ductus Venosus. 2 Indication ----- --------- Yellowstone-Di twin , Twin-twin transfusion, Supervision of high riskpregnancy-Twin A: right sided AO and left sided ductus ateriosus, bilateral club feet, Twin B : placentomegaly, CVI and cavumvergae History ----- --------- OB History 1. Para 0 [id number] Maternal Assessment ----- --------- Physical Exam Height 168 cm, 5 ft 6 in. Weight 80 kg, 177 lb. BMI 28.57kg/m Method ----- --------- Transabdominal ultrasound examination ----- --------- Twin . Number of fetuses: 2. Monochorionic-diamniotic Dating ----- --------- LMP on: 01/18/2024 GA by LMP 31 w + 1 d PRISCILLA by LMP: 10/24/2024 Previous Ultrasound on: 04/09/2024 Type of prior assessment: GA GA at prior assessment date 10 w + 1 d GA by previous U/S 29 w + 4 d PRISCILLA by previous Ultrasound: 11/04/2024 Ultrasound examination on: 08/23/2024 GA by U/S based upon: AC, BPD, Femur, HC GA by U/S 29 w + 3 d PRISCILLA by U/S: 11/05/2024 GA by U/S based upon (Fetus 2): AC, BPD, Femur, HC GA by U/S (Fetus 2) 28 w + 1 d PRISCILLA by U/S (Fetus 2): 11/14/2024 Assigned: based on ultrasound (GA), selected on 05/25/2024 Assigned GA 29 w + 4 d Assigned PRISCILLA: 11/04/2024 Fetus A: General Evaluation ----- --------- Cardiac activity Present. FHR 144 bpm. Presentation: lower, cephalicleft Placenta: Placental site: posterior, away from cervical os Umbilical cord: Cord vessels: 3 vessel cord Amniotic fluid: Amount of AF: normal amount. MVP 3.2 cm Fetus B: General Evaluation ----- --------- Cardiac activity Present. FHR 148 bpm. Presentation: upper, cephalicright Placenta: Placental site: posterior, away from cervical os Umbilical cord: Cord vessels: 3 vessel cord Amniotic fluid: Amount of AF: normal amount. MVP 4.0 cm Fetus A: Biometry ----- --------- BPD 77.3 mm 31w 0d 81% Hadlock OFD 95.5 mm 30w 6d 81% Roberth HC 278.5 mm 30w 3d 42% Hadlock Cerebellum tr 34.4 mm 28w 6d 26% Hill AC 243.0 mm 28w 4d 17% Hadlock Femur 52.3 mm 27w 6d 4% Hadlock Humerus 47.9 mm 28w 1d 14% Roberth HC / AC 1.15 Weight Calculation: EFW 1,265 g 14% Hadlock EFW (lb,oz) 2 lb 13 oz EFW by Hadlock ([id number]) EFW discordance 1.3 % Head / Face / Neck Biometry: Cephalic index 0.81 70% Nicolaides Implementation Manager 7.5 mm CM 7.8 mm 74% Nicolaides Extremities / Bony Struc Biometry: FL / BPD 0.68 FL / HC 0.19 FL / AC 0.22 Tibia 46.5 mm 28w 2d 14% Roberth Fetus B: Biometry ----- --------- BPD 68.6 mm 27w 4d 2% Hadlock OFD 91.6 mm 29w 4d 49% Roberth HC 257.8 mm 28w 0d 1% Hadlock Cerebellum tr 33.5 mm 28w 2d 13% Hill AC 248.4 mm 29w 0d 29% Hadlock Femur 53.1 mm 28w 1d 7% Hadlock Humerus 48.2 mm 28w 2d 16% Roberth HC / AC 1.04 Weight Calculation: EFW 1,249 g 12% Hadlock EFW (lb,oz) 2 lb 12 oz EFW by Hadlock ([id number]) EFW discordance 1.3 % Head / Face / Neck Biometry: Cephalic index 0.75 11% Nicolaides Implementation Manager 8.3 mm CM 5.4 mm 11% Nicolaides Extremities / Bony Struc Biometry: FL / BPD 0.77 FL / HC 0.21 FL / AC 0.21 Tibia 46.3 mm 28w 1d 12% Roberth Fetus A: Anatomy ----- --------- The following structures appear normal: Head/Neck: Cranium. Lateral ventricles. Cavum septi pellucidi. Cerebellum.Cisterna magna. Heart/Thorax: 4-chamber view. Diaphragm. Abdomen: Stomach. Kidneys. Bladder. Fetus B: Anatomy ----- --------- The following structures appear normal: Head / Neck Cranium. Lateral ventricles. Cavum septi pellucidi.Cerebellum. Cisterna magna. Heart / Thorax 4-chamber view. Diaphragm. Abdomen Stomach. Kidneys. Bladder. Fetus A: Doppler ----- --------- Umbilical Artery: normal PI 0.80 12% Ebbing PS -41.16 cm/s TAmax -27.86 cm/s MD -17.79 cm/s S / D 2.21 11% Keysha Mid Cerebral Artery: normal PI 1.72 9% Ebbing RI 0.80 49% Bahlmann PS 39.10 cm/s PS 0.99 MoM ED 7.87 cm/s TAmax 17.92 cm/s 59% Ebbing CPR PI 2.15 41% Ebbing Ductus Venosus: normal Fetus B: Doppler ----- --------- Umbilical Artery: normal PI 1.13 84% Ebbing PS -59.71 cm/s TAmax -40.20 cm/s MD -23.77 cm/s S / D 3.49 79% Keysha Mid Cerebral Artery: normal PI 1.74 10% Ebbing RI 0.79 46% Bahlmann PS 41.74 cm/s PS 1.05 MoM ED 8.68 cm/s TAmax 20.43 cm/s 80% Ebbing CPR PI 1.54 5% Ebbing Ductus Venosus: normal Maternal Structures ----- --------- Uterus Visualized Cervix Suboptimal Approach - Transabdominal Right Ovary Not visualized Left Ovary Not visualized Cul de Sac Suboptimal Impression ----- --------- Monochorionic-diamniotic twin consistent with 29w 4d with an EDDof 11/04/2024. Twin A is lower, cephalic left. Intrauterine with appropriate interval growth. EFW measures atthe 14%, AC measures at the 17%. Umbilical artery S/D ratio in normal range. MCA PSV measures 39.10 cm/s, 0.99 MoM which is in the unremarkable rangefor the evaluation of anemia. Ductus venosus demonstrates continuous forward flow. Right sided aortic arch and bilateral clubbed feet were not appreciated ontoday's exam. bladder and stomach are identified. Amniotic fluid MVP is 3.2 cm. Twin B is upper, cephalic right. Intrauterine with appropriate interval growth. EFW measures atthe 12%, AC measures at the 29%. The HC measures less than the 3rd percentile for the gestational agebut reference biometric measurement within 2 SD of the mean (Simba and colleagues, 1984). Umbilical artery S/D ratio in normal range. MCA PSV measures 41.74 cm/s, 1.05 MoM which is in the unremarkable rangefor the evaluation of anemia. Ductus venosus demonstrates continuous forward flow. Previously identified cerebral ventriculomegaly is not appreciated ontoday's exam. 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 Previously seen suspected CVI cyst is not appreciated on today's exam. bladder and stomach are identified. Amniotic fluid MVP is 3.9 cm. Discordance is 1.3%. Recommendations ----- --------- Continue testing as previously recommended. Subsequent follow up or other follow up as clinically determined byprimary OB provider unless otherwise specified by MFM. Results forwarded to ordering provider so they can follow up with thepatient as necessary. Kentrell Storey MD IMG US ORDERABLES Final Resul t * US MFM LMTD OB, 1 OR MORE FETUS (08/09/2024 9:02 AM EST) Anatomical Region Laterality Modality OB-DATA INTEGRATION ANALYST Ultrasound 08/09/2024 8:11 AM EST Narrative 08/09/2024 5:25 PM EST NAME: BELGICA RODRIGUEZ : 2000 SEX: F Accession Number: [id number] ORDERING PHYSICIAN: KENTRELL STOREY REFERRING PHYSICIAN: JAVON GARRIDO Coding ----- --------- Procedures 62060: Limited OB / DANIEL, 1 or More Fetuses 91236: Doppler velocimetry, ; umbilical artery. 2 93275: Doppler velocimetry, ; middle cerebral artery. 2 14325: Doppler Ductus Venosus. 2 Indication ----- --------- Yellowstone-Di twin , Twin-twin transfusion, Supervision of high risk -Twin A: right sided AO and left sided ductus ateriosus, bilateral club feet, Twin B: placentomegaly, CVI and cavum vergae. History ----- --------- OB History 1. Para 0 [id number] Maternal Assessment ----- --------- Physical Exam Height 168 cm, 5 ft 6 in. Weight 78 kg, 172 lb. BMI 27.76 kg/m Method ----- --------- Transabdominal ultrasound examination ----- --------- Twin . Number of fetuses: 2. Monochorionic-diamniotic Dating ----- --------- LMP on: 01/18/2024 GA by LMP 29 w + 1 d PRISCILLA by LMP: 10/24/2024 Previous Ultrasound on: 04/09/2024 Type of prior assessment: GA GA at prior assessment date 10 w + 1 d GA by previous U/S 27 w + 4 d PRISCILLA by previous Ultrasound: 11/04/2024 Assigned: based on ultrasound (GA), selected on 05/25/2024 Assigned GA 27 w + 4 d Assigned PRISCILLA: 11/04/2024 Fetus A: General Evaluation ----- --------- Cardiac activity Present. FHR 150 bpm. Presentation: lower, cephalic left Placenta: Placental site: posterior, away from cervical os Amniotic fluid: Amount of AF: normal amount. MVP 4.2 cm Fetus B: General Evaluation ----- --------- Cardiac activity Present. FHR 142 bpm. Presentation: upper, transverse head maternal right Placenta: Placental site: posterior, away from cervical os Amniotic fluid: Amount of AF: normal amount. MVP 5.1 cm Fetus A: Anatomy ----- --------- The following structures appear normal: Abdomen: Stomach. Bladder. Fetus B: Anatomy ----- --------- The following structures appear normal: Abdomen Stomach. Bladder. Fetus A: Doppler ----- --------- Umbilical Artery: normal PI 0.88 20% Ebbing PS -40.11 cm/s TAmax -27.71 cm/s MD 16.49 cm/s S / D 2.41 13% Keysha Mid Cerebral Artery: normal PI 1.74 14% Ebbing RI 0.77 35% Bahlmann PS 21.24 cm/s PS 0.59 MoM ED 4.92 cm/s TAmax 10.38 cm/s 2% Ebbing CPR PI 1.98 38% Ebbing Ductus Venosus: normal Fetus B: Doppler ----- --------- Umbilical Artery: normal PI 1.04 57% Ebbing PS -47.54 cm/s TAmax -29.81 cm/s MD -15.72 cm/s S / D 2.96 43% Keysha Mid Cerebral Artery: normal PI 1.79 17% Ebbing RI 0.80 47% Bahlmann PS 33.17 cm/s PS 0.92 MoM ED 6.79 cm/s TAmax 14.82 cm/s 41% Ebbing CPR PI 1.72 17% Ebbing Ductus Venosus: normal Maternal Structures ----- --------- Uterus Visualized Cervix Suboptimal Approach - Transabdominal Cul de Sac Suboptimal Impression ----- --------- Monochorionic-diamniotic twin consistent with 27w 4d with an PRISCILLA of 11/04/2024. Twin A is lower, cephalic left. bladder and stomach are identified. Umbilical artery S/D ratio in normal range. Ductus venosus demonstrates continuous forward flow. MCA PSV measures 21.24 cm/s, 0.59 MoM which is in the unremarkable range for the evaluation of anemia. Amniotic fluid MVP is 4.2 cm. Previously identified right sided aortic arch and bilateral clubbed feet were not evaluated on today's exam. Twin B is upper, transverse head maternal right. bladder and stomach are identified Umbilical artery S/D ratio in normal range. Ductus venosus demonstrates continuous forward flow. MCA PSV measures 33.17 cm/s, 0.92 MoM which is in the unremarkable range for the evaluation of anemia. Amniotic fluid MVP is 5.1 cm. Previously identified cerebral ventriculomegaly was not evaluated on today's exam. 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 Previously seen suspected CVI cyst was not evaluated on today's exam. Recommendations ----- --------- The patient is scheduled in one week for TTTS protocol and Dopplers The patient is scheduled in two weeks for twin growth and Dopplers. Subsequent follow up or other follow up as clinically determined by primary OB provider unless otherwise specified by MFM. Results forwarded to ordering provider so they can follow up with the patient as necessary. Procedure Note Toya Carranza MD - 08/09/2024 NAME: BELGICA RODRIGUEZ : 2000 SEX: F Accession Number: [id number] ORDERING PHYSICIAN: KENTRELL STOREY REFERRING PHYSICIAN: JAVON GARRIDO Coding ----- --------- Procedures 53119: Limited OB / DANIEL, 1 or More Fetuses 17247: Doppler velocimetry, ; umbilical artery. 2 33730: Doppler velocimetry, ; middle cerebral artery. 2 17409: Doppler Ductus Venosus. 2 Indication ----- --------- Yellowstone-Di twin , Twin-twin transfusion, Supervision of high riskpregnancy-Twin A: right sided AO and left sided ductus ateriosus, bilateral club feet, Twin B: placentomegaly, CVI and cavumvergae. History ----- --------- OB History 1. Para 0 [id number] Maternal Assessment ----- --------- Physical Exam Height 168 cm, 5 ft 6 in. Weight 78 kg, 172 lb. BMI 27.76kg/m Method ----- --------- Transabdominal ultrasound examination ----- --------- Twin . Number of fetuses: 2. Monochorionic-diamniotic Dating ----- --------- LMP on: 01/18/2024 GA by LMP 29 w + 1 d PRISCILLA by LMP: 10/24/2024 Previous Ultrasound on: 04/09/2024 Type of prior assessment: GA GA at prior assessment date 10 w + 1 d GA by previous U/S 27 w + 4 d PRISCILLA by previous Ultrasound: 11/04/2024 Assigned: based on ultrasound (GA), selected on 05/25/2024 Assigned GA 27 w + 4 d Assigned PRISCILLA: 11/04/2024 Fetus A: General Evaluation ----- --------- Cardiac activity Present. FHR 150 bpm. Presentation: lower, cephalicleft Placenta: Placental site: posterior, away from cervical os Amniotic fluid: Amount of AF: normal amount. MVP 4.2 cm Fetus B: General Evaluation ----- --------- Cardiac activity Present. FHR 142 bpm. Presentation: upper, transversehead maternal right Placenta: Placental site: posterior, away from cervical os Amniotic fluid: Amount of AF: normal amount. MVP 5.1 cm Fetus A: Anatomy ----- --------- The following structures appear normal: Abdomen: Stomach. Bladder. Fetus B: Anatomy ----- --------- The following structures appear normal: Abdomen Stomach. Bladder. Fetus A: Doppler ----- --------- Umbilical Artery: normal PI 0.88 20% Ebbing PS -40.11 cm/s TAmax -27.71 cm/s MD 16.49 cm/s S / D 2.41 13% Keysha Mid Cerebral Artery: normal PI 1.74 14% Ebbing RI 0.77 35% Bahlmann PS 21.24 cm/s PS 0.59 MoM ED 4.92 cm/s TAmax 10.38 cm/s 2% Ebbing CPR PI 1.98 38% Ebbing Ductus Venosus: normal Fetus B: Doppler ----- --------- Umbilical Artery: normal PI 1.04 57% Ebbing PS -47.54 cm/s TAmax -29.81 cm/s MD -15.72 cm/s S / D 2.96 43% Keysha Mid Cerebral Artery: normal PI 1.79 17% Ebbing RI 0.80 47% Bahlmann PS 33.17 cm/s PS 0.92 MoM ED 6.79 cm/s TAmax 14.82 cm/s 41% Ebbing CPR PI 1.72 17% Ebbing Ductus Venosus: normal Maternal Structures ----- --------- Uterus Visualized Cervix Suboptimal Approach - Transabdominal Cul de Sac Suboptimal Impression ----- --------- Monochorionic-diamniotic twin consistent with 27w 4d with an EDDof 11/04/2024. Twin A is lower, cephalic left. bladder and stomach are identified. Umbilical artery S/D ratio in normal range. Ductus venosus demonstrates continuous forward flow. MCA PSV measures 21.24 cm/s, 0.59 MoM which is in the unremarkable rangefor the evaluation of anemia. Amniotic fluid MVP is 4.2 cm. Previously identified right sided aortic arch and bilateral clubbed feetwere not evaluated on today's exam. Twin B is upper, transverse head maternal right. bladder and stomach are identified Umbilical artery S/D ratio in normal range. Ductus venosus demonstrates continuous forward flow. MCA PSV measures 33.17 cm/s, 0.92 MoM which is in the unremarkable rangefor the evaluation of anemia. Amniotic fluid MVP is 5.1 cm. Previously identified cerebral ventriculomegaly was not evaluated ontoday's exam. 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 Previously seen suspected CVI cyst was not evaluated on today's exam. Recommendations ----- --------- The patient is scheduled in one week for TTTS protocol and Dopplers The patient is scheduled in two weeks for twin growth and Dopplers. Subsequent follow up or other follow up as clinically determined byprimary OB provider unless otherwise specified by M. Results forwarded to ordering provider so they can follow up with thepatient as necessary. us Kentrell Storey MD [facility] ORDERABLES Final Resul t documented in this encounter Visit Diagnoses Diagnosis Monochorionic diamniotic twin , antepartum- Primary Club foot of fetus affecting antepartum care of mother, fetus 1 of multiple gestation cardiac anomaly complicating , antepartum, fetus 1 Placental abnormality in second trimester Monochorionic diamniotic twin , antepartum Club foot of fetus affecting antepartum care of mother, fetus 1 of multiple gestation cardiac anomaly complicating , antepartum, fetus 1 Placental abnormality in second trimester Monochorionic diamniotic twin , antepartum Club foot of fetus affecting antepartum care of mother, fetus 1 of multiple gestation cardiac anomaly complicating , antepartum, fetus 1 Placental abnormality in second trimester documented in this encounter Additional Health Concerns Assessment Noted Time PHQ-9 Depression Total Score: 0 06/09/20 24 10:18 AM EST documented as of this encounter
--- OUTSIDE RECORDS SUMMARY | 2024-12-12 14:38 | XMS_ITS | Clinical Summary ---
Author Organization [facility] Address [address] [place] [address] Care Team Providers Care Longwall Machine Operator Helper Name Role Phone Romero Esteban MD Primary Care Provider Unavail able Allergies No known active allergies Medications multivit-min/fe rrous fumarate (MULTI VITAMIN ORAL) Take by mouth. Women's One-A-Day. Pt reports taking one tablet daily on occasion. Active norgestimate 0.25 mg-ethinyl estradioL 35 mcg tablet (Sprintec (28))Indication s:Breakthrough bleeding on control pills Take 1 tablet by mouth once daily. 3 Package 4 07/03/2020 Active sertraline 50 mg tablet (Zoloft) Take 1 tablet by mouth daily at breakfast. 30 tablet 2 08/10/2022 Active Active Problems Problem Noted Date Diagnosed Date Dysfunctional uterine bleeding 11/29/2017 Anxiety 09/05/2017 Iron deficiency anemia 09/05/2017 Vitamin D deficiency 09/05/2017 Medial tibial stress syndrom e, unspecified laterality, initial encounter 10/04/2016 Resolved Problems Problem Noted Date Diagnosed Date Resolved Date Depo-Provera contraceptive status 09/05/2017 02/14/2018 Overview (09/05/2017): 09/05/2017: First encounter. Pain of both hip joints 03/03/2016/10/2016 Iliotibial band syndrome, left 02/04/2016 10/05/2016 Immunizations Immunization Administration Dates Next Due Depo Provera Inj 11/29/2017 Influenza, injectable, quadrivalent, preservativ e free 03/28/2019 Pfizer SARS-CoV-2 Vaccination 10/07/2020, 021 Family History Medical History Relation Comments Cancer Maternal Grandmother of lakhwinder ast cancer at 28 No Known Problems Natural Brother 1 No Known Problems Natural Brother 2 No Known Problems Natural Father <Moved to 0> Other Natural Mother abnormal uter ine bleeding, s/p hysterectomy Relation Status Comments Maternal Grandmother Natural Brother 1 Natural Brother 2 Natural Father Natural Mother Social History Tobacco Use Types Packs/Day Years Used Date Smoking Tobacco: Never Smokeless Tobacco: Never Alcohol Use Standard Drinks/Week Comments No 0 (1 standard drink = 0.6 oz pur e alcohol) Comments No Sex and Gender Information Value Date Recorded Sex Assigned at Not on file Legal Sex Female 12:54 AM EST Gender Identity Not on file Sexual Orientation Not on file Last Filed Vital Signs Vital Sign Reading Time Taken Comments Blood Pressure 127/75 07/03/2020 3:26 PM EST Pulse 86 07/03/2020 3:26 PM EST Temperature 36.9 C (98.4 F) 07/03/2020 3:26 PM EST Respiratory Rate 16 05/14/2020 3:17 PM EST Oxygen Saturation - - Inhaled Oxygen Concentration - - Weight 66.5 kg (146 lb 9.7 oz) 07/03/2020 3:26 P M EST Height 166.1 cm (5' 5.39 ) 07/03/2020 3:26 PM ES T Body Mass Index 24.1 07/03/2020 3:26 PM EST Plan of Treatment Health Maintenance Due Date Last Done Comments MMR Vaccine (1 of 1 - Standa rd series) 2002 DTaP/Tdap/Td Vaccine (1 - Tdap) 2008 Varicella Vaccine (1 of 2 - 13+ 2-dose series) 2014 HPV Vaccine (1 - 3-dose series) 2016 Meningococcal B Vaccine (1 o f 2 - Standard) 2017 Hepatitis B Vaccine (1 of 3 - 19+ 3-dose series) 2020 COVID-19 Vaccine (2023-2 5 season) 2024 10/07/2020, 09/16/2020 Influenza Vaccine (Season Ended) 2025 03/28/2019 HIB Vaccine Aged Out No longer eligi ble based on patient's age to complete this topic Hepatitis A Vaccine Aged Out No longe r eligible based on patient's age to complete this topic IPV Vaccine Aged Out No longer eligi ble based on patient's age to complete this topic Meningococcal ACWY Vaccine Aged Out N o longer eligible based on patient's age to complete this topic Pneumococcal Vaccine Aged Out No long er eligible based on patient's age to complete this topic RSV, Nirsevimab Immunization Aged Out No longer eligible based on patient's age to complete this topic Rotavirus Vaccine Aged Out No longer eligible based on patient's age to complete this topic Insurance [facility] [employer] Care Teams Longwall Machine Operator Helper Relationship Specialty Start Date End Date Romero Esteban MD PCP - General Pediatrics 06/22/12
--- OUTSIDE RECORDS SUMMARY | 2024-12-12 14:38 | XMS_ITS | Encounter Summary ---
Author Organization [facility] Address [id number] [address] [place] [address] Care Team Providers Care Boiler Inspector Name Role Phone Unavailable Primary Care Provider Unavailabl e Reason for Visit * Reason Onset Date Comments Contractions 09/29/2024 Encounter Details Date Type Department Care Team ([facility] Contact Info) Description 09/29/2024 Telephone [facility] [address] [place] [address] Julita Donohue RN Contractions Social History Tobacco Use Types Packs/Day Years [...] got money to buy more. Never True 09/27/2024 Within the past 12 months th e food we bought just didn't last and we didn't have money to get more. Never True 09/27/2024 Comments Yes Sex and Gender Information Value Date Recorded Sex Assigned at Not on file Legal Sex Female 9:56 AM EST Gender Identity Not on file Sexual Orientation Not on file documented as of this encounter Miscellaneous Notes * Telephone Encounter - Julita Donohue RN - 09/29/2024 7:55 PM EDT Contract: OB Natalia Arias is a 24 y.o. female with Estimated Date of Delivery: 11/04/24 at 34w6d presents for contractions. Reports normal movement. Patient denies vaginal bleeding, reports contractions, denies leakage of fluid, denies abnormal vaginal discharge. Pt of Dr. Dominguez. * Telephone Encounter - Julita Donohue RN - 09/29/2024 7:55 PM EDT Numeric page placed to on-call provider MADISYN Dai. Awaiting response. * Telephone Encounter - Julita Donohue RN - 09/29/2024 7:55 PM EDT Call back received from MADISYN Dai and provider transferred through to speak with Pt directly. documented in this encounter Plan of Treatment Not on file documented as of this encounter Visit Diagnoses Not on filedocumented in this encounter Additional Health Concerns Assessment Noted Time PHQ-9 Depression Total Score: 0 06/09/20 24 10:18 AM EST documented as of this encounter
--- OUTSIDE RECORDS SUMMARY | 2024-12-12 14:38 | XMS_ITS | Clinical Summary ---
Author Organization [facility] Address [address] [place] [address] Care Team Providers Care Training Instructor Name Role Phone Unallocated, Noms Provider Primary Care Provi kelly Allergies No known active allergies Medications MV-Min-Fe Fum-FA-DHA ( 1 PO) Take by mouth Active b complex vitamins capsule Take 1 capsule by mouth if needed Active Blood Pressure Monitoring (Blood Pressure Cuff) miscIndications:M onochorionic diamniotic twin gestation in second trimester ([facility]),Chronic hypertension with exacerbation during in second trimester ([facility]) Check BP 2x daily 1 each 4 Active Encounters Date Type Department Care Team Description 10/10/2024 Telephone [facility] [address] [facility] [address] [place] [id number] Romero Gorman DO from Last 3 Months Family History Medical History Relation Name Comments Cancer Maternal Grandfather Cancer Maternal Grandmother Thyroid disease Mother Relation Name Status Comments Maternal Grandfather Maternal Grandmother Mother Social History Tobacco Use Types Packs/Day [...] file Not on file Not on file Last Filed Vital Signs Vital Sign Reading Time Taken Comments Blood Pressure 130/90 05/21/2024 5:22 PM EST Pulse 84 12/16/2023 10:49 AM EDT Temperature 36.4 C (97.5 F) 12/16/2023 10:49 AM EDT Respiratory Rate - - Oxygen Saturation 99% 12/16/2023 10:49 AM EDT Inhaled Oxygen Concentration - - Weight 69.4 kg (153 lb) 05/21/2024 5:22 PM EST Height - - Body Mass Index - - Plan of Treatment Health Maintenance Due Date Last Done Comments Influenza Vaccine (Season Ended) 2025 03/28/20 19 Insurance BCBS Care Teams Training Instructor Relationship Specialty Start Date End Date Unallocated, Noms MD [address] [place] [address] PCP - General Family Medicine 03/21/24
--- OUTSIDE RECORDS SUMMARY | 2024-12-12 14:38 | XMS_ITS | Encounter Summary ---
Author Organization [facility] tem Address [id number] [address] [place] [address] Care Team Providers Care Supervisor Wool Shearing Name Role Phone Unavailable Primary Care Provider Unavailabl e Encounter Details Date Type Department Care Team ([facility] Contact Info) Description 08/16/2024 Telephone Maternal- Medicine at [facility] [address] [place] [address] Odalys Garcia Social History Tobacco Use Types Packs/Day Years [...] got money to buy more. Never True 08/16/2024 Within the past 12 months th e food we bought just didn't last and we didn't have money to get more. Never True 08/16/2024 Comments Yes Sex and Gender Information Value Date Recorded Sex Assigned at Not on file Legal Sex Female 9:56 AM EST Gender Identity Not on file Sexual Orientation Not on file documented as of this encounter Plan of Treatment Not on file documented as of this encounter Visit Diagnoses Diagnosis Gestational hypertension, third trimester- Primary documented in this encounter Additional Health Concerns Assessment Noted Time PHQ-9 Depression Total Score: 0 06/09/20 24 10:18 AM EST documented as of this encounter
--- OUTSIDE RECORDS SUMMARY | 2024-12-12 14:38 | XMS_ITS | Encounter Summary ---
Author Organization [facility] tem Address [id number] [address] [place] [address] Care Team Providers Care Senior Front End Developer Name Role Phone Unavailable Primary Care Provider Unavailabl e Reason for Referral * Diagnostic Imaging (Routine) - Pending Review Specialty Diagnoses / Procedures Referred By Thanh malik Referred To Contact Maternal and Medicine Diagnoses Monochorionic diamniotic twin gestation in second trimester Intrauterine growth restriction affecting antepartum care of mother in second trimester, fetus 1 Elevated blood pressure reading Procedures US MFM with or without consult Dinora Lara MD [address] [facility] 06/12/2024 [place] [address] Phone: tel: fax: Maternal- Medicine at [facility] [address] [place] [address] Phone: tel: fax: Referral ID Status Reason Start Date Expiration Date V isits Requested Visits Authorized [id number] Pending Review 05/28/2024 05/28/2025 1 1 Encounter Details Date Type Department Care Team (Late st Contact Info) Description 05/28/2024 Orders Only Maternal Medicine [place] [address] [place] [address] Vania Azevedo, BRITAT Monochorionic diamniotic twin gestation in second trimester (Primary Dx); Intrauterine growth restriction affecting antepartum care of mother in second trimester, fetus 1; Elevated blood pressure reading Social History Tobacco Use Types Packs/Day Years Used Date Smoking Tobacco: Never Smokeless Tobacco: Never Alcohol Use Standard Drinks/Week Comments Not Currently 0 (1 standard drink = 0.6 oz pur e alcohol) Hunger Screening Answer Date Recorded Within the past 12 months we worried whether our food would run out before we got money to buy more. Never True 05/25/2024 Within the past 12 months th e food we bought just didn't last and we didn't have money to get more. Never True 05/25/2024 Comments Yes Sex and Gender Information Value Date Recorded Sex Assigned at Not on file Legal Sex Female 9:56 AM EST Gender Identity Not on file Sexual Orientation Not on file documented as of this encounter Plan of Treatment Not on file documented as of this encounter Results * US MFM LMTD OB, 1 OR MORE FETUS (06/07/2024 10:19 AM EST) Anatomical Region Laterality Modality OB-ORE TESTER Ultrasound 06/07/2024 8:38 AM EST Narrative 06/07/2024 1:19 PM EST Coding ====== Procedures 68385: Limited OB / DANIEL, 1 or More Fetuses 05739: Doppler Umbilical Artery. 2 11232: Doppler Middle Cerebral Artery. 2 80567: Doppler Ductus Venosus. 2 79158: Transvaginal Ultrasound (OB) Indication ======== Screening for Anatomic Survey, Laporte-Di twin , Twin-twin transfusion History ====== OB History 1. Para 0 [id number] Maternal Assessment Physical Exam Height 168 cm, 5 ft 6 in Method ====== Transabdominal ultrasound examination ========= Twin . Number of fetuses: 2. Monochorionic-diamniotic Dating ====== Date Details Gest. age PRISCILLA LMP 01/18/2024 20 w + 1 d 10/24/2024 Previous U/S 04/09/2024 GA, GA 10 w + 1 d 18 w + 4 d 11/04/2024 Assigned dating based on ultrasound (GA), selected on 05/25/2024 18 w + 4 d 11/04/2024 Fetus A: General Evaluation Cardiac activity Present. FHR 154 bpm. Presentation: Lower left presenting fetus, variable Placenta: Placental site: posterior, away from cervical os Amniotic fluid: Amount of AF: normal amount. MVP 5.1 cm Fetus B: General Evaluation Cardiac activity Present. FHR 154 bpm. Presentation: Upper right fetus, variable Placenta: Placental site: posterior, away from cervical os Amniotic fluid: Amount of AF: normal amount. MVP 6.7 cm Fetus B: Biometry Head / Face / Neck Biometry: Flow Nurse 12.4 mm Fetus A: Anatomy The following structures appear abnormal: Heart / Thorax [id number] view: Right sided aortic arch. The following structures appear normal: Abdomen Stomach. Bladder. Fetus B: Anatomy The following structures appear abnormal: Head / Neck Lateral ventricles. The following structures appear normal: Abdomen Stomach. Bladder. Fetus A: Doppler Umbilical Artery: PI 1.32 PS 31.99 cm/s TAmax 17.60 cm/s MD 6.86 cm/s S / D 3.88 Mid Cerebral Artery: PI 1.46 RI 0.74 76% Bahlmann PS 24.08 cm/s PS 1.01 MoM ED 6.21 cm/s TAmax 12.25 cm/s CPR PI 1.11 Fetus B: Doppler Umbilical Artery: PI 1.30 PS 66.18 cm/s TAmax 37.70 cm/s MD 17.39 cm/s S / D 3.69 Mid Cerebral Artery: PI 1.41 RI 0.75 82% Bahlmann PS 27.51 cm/s PS 1.15 MoM ED 6.77 cm/s TAmax 14.72 cm/s CPR PI 1.08 Maternal Structures Uterus Visualized Cervix Suboptimal Approach - Transabdominal: Cervical length 4.09 cm Cul de Sac Suboptimal Impression ========= Monochorionic-diamniotic twin . Twin A is Lower left presenting fetus, variable. bladder is identified. Amniotic fluid MVP is 5.1 cm. Umbilical artery has continuous forward flow. MCA PSV measures 24.08 cm/s, 1.01 MoM which is in the unremarkable range for the evaluation of anemia. Ductus venosus demonstrates continuous forward flow. Right sided aortic arch visualized. Twin B is Upper right fetus, variable. bladder is identified. Amniotic fluid MVP is 6.7 cm. Umbilical artery has continuous forward flow. MCA PSV measures 27.51 cm/s, 1.15 MoM which is in the unremarkable range for the evaluation of anemia. Ductus venosus demonstrates continuous forward flow. Bilateral cerebral ventriculomegaly visualized, RT= 1.24 cm, LT = 1.18 cm. Previously seen suspected CVI cyst again visualized and measures 0.5 x 0.2 cm. Recommendations Please see follow up MFM documentation from today's encounter. Subsequent follow up or other follow up as clinically determined by primary OB provider unless otherwise specified by MFM. Results forwarded to ordering provider so they can follow up with the patient as necessary. Procedure Note Dinora Lara MD - 06/07/2024 Coding ====== Procedures 08964: Limited OB / DANIEL, 1 or More Fetuses 12285: Doppler Umbilical Artery. 2 00541: Doppler Middle Cerebral Artery. 2 26215: Doppler Ductus Venosus. 2 08720: Transvaginal Ultrasound (OB) Indication ======== Screening for Anatomic Survey, Laporte-Di twin , Twin-twintransfusion History ====== OB History 1. Para 0 [id number] Maternal Assessment Physical Exam Height 168 cm, 5 ft 6 in Method ====== Transabdominal ultrasound examination ========= Twin . Number of fetuses: 2. Monochorionic-diamniotic Dating ====== Date Details Gest. ageEDD LMP 01/18/2024 20 w + 1 10/24/2024 Previous U/S 04/09/2024 GA, GA 10 w + 1 d 18w + 4 d 11/04/2024 Assigned dating based on ultrasound (GA), selected on w + 4 d 11/04/2024 Fetus A: General Evaluation Cardiac activity Present. FHR 154 bpm. Presentation: Lower left presentingfetus, variable Placenta: Placental site: posterior, away from cervical os Amniotic fluid: Amount of AF: normal amount. MVP 5.1 cm Fetus B: General Evaluation Cardiac activity Present. FHR 154 bpm. Presentation: Upper right fetus,variable Placenta: Placental site: posterior, away from cervical os Amniotic fluid: Amount of AF: normal amount. MVP 6.7 cm Fetus B: Biometry Head / Face / Neck Biometry: Flow Nurse 12.4 mm Fetus A: Anatomy The following structures appear abnormal: Heart / Thorax [id number] view: Right sided aortic arch. The following structures appear normal: Abdomen Stomach. Bladder. Fetus B: Anatomy The following structures appear abnormal: Head / Neck Lateral ventricles. The following structures appear normal: Abdomen Stomach. Bladder. Fetus A: Doppler Umbilical Artery: PI 1.32 PS 31.99 cm/s TAmax 17.60 cm/s MD 6.86 cm/s S / D 3.88 Mid Cerebral Artery: PI 1.46 RI 0.74 76% [facility] PS 24.08 cm/s PS 1.01 MoM ED 6.21 cm/s TAmax 12.25 cm/s CPR PI 1.11 Fetus B: Doppler Umbilical Artery: PI 1.30 PS 66.18 cm/s TAmax 37.70 cm/s MD 17.39 cm/s S / D 3.69 Mid Cerebral Artery: PI 1.41 RI 0.75 82% Bahlmann PS 27.51 cm/s PS 1.15 MoM ED 6.77 cm/s TAmax 14.72 cm/s CPR PI 1.08 Maternal Structures Uterus Visualized Cervix Suboptimal Approach - Transabdominal: Cervical length 4.09 cm Cul de Sac Suboptimal Impression ========= Monochorionic-diamniotic twin . Twin A is Lower left presenting fetus, variable. bladder is identified. Amniotic fluid MVP is 5.1 cm. Umbilical artery has continuous forward flow. MCA PSV measures 24.08 cm/s, 1.01 MoM which is in the unremarkable rangefor the evaluation of anemia. Ductus venosus demonstrates continuous forward flow. Right sided aortic arch visualized. Twin B is Upper right fetus, variable. bladder is identified. Amniotic fluid MVP is 6.7 cm. Umbilical artery has continuous forward flow. MCA PSV measures 27.51 cm/s, 1.15 MoM which is in the unremarkable rangefor the evaluation of anemia. Ductus venosus demonstrates continuous forward flow. Bilateral cerebral ventriculomegaly visualized, RT= 1.24 cm, LT = 1.18cm. Previously seen suspected CVI cyst again visualized and measures 0.5 x 0.2cm. Recommendations Please see follow up MFM documentation from today's encounter. Subsequent follow up or other follow up as clinically determined byprimary OB provider unless otherwise specified by MFM. Results forwarded to ordering provider so they can follow up with thepatient as necessary. [facility] Dyan Lara MD [facility] ORDERABLES Final Res ult documented in this encounter Visit Diagnoses Diagnosis Monochorionic diamniotic twin gestation in second trimester- Primary Intrauterine growth restriction affecting antepartum care of mother in second trimester, fetus 1 Elevated blood pressure reading Elevated blood pressure reading without diagnosis of hypertension Monochorionic diamniotic twin gestation in second trimester Intrauterine growth restriction affecting antepartum care of mother in second trimester, fetus 1 Elevated blood pressure reading Elevated blood pressure reading without diagnosis of hypertension documented in this encounter
--- OUTSIDE RECORDS SUMMARY | 2024-12-12 14:38 | XMS_ITS | Encounter Summary ---
Author Organization [facility] tem Address [id number] [address] [place] [address] Care Team Providers Care Retail Merchandising Coordinator Name Role Phone Unavailable Primary Care Provider Unavailabl e Reason for Referral * Consultation (Routine) - Pending Review Specialty Diagnoses / Procedures Referred By Contac t Referred To Contact Obstetrics & Gynecology / Obstetrics and Gynecology Diagnoses Monochorionic diamniotic twin gestation in second trimester Dinora Lara MD [address] [facility], [address] [place] [address] 06/12/2024 [place] [address] Phone: tel: fax: Wendi Dominguez MD [address] [place] [address], [place] [address] Phone: tel: fax: Referral ID Status Reason Start Date Expiration Date Visits Requested Visits Authorized [id number] Pending Review Specialty Services Required 4 05/30/2025 1 1 Encounter Details Date Type Department Care Team (Late st Contact Info) Description 05/30/2024 Orders Only Maternal- Medicine at [facility] [address] [place] [address] Sarah Judd RDMS Monochorionic diamniotic twin gestation in second trimester (Primary Dx) Social History Tobacco Use Types Packs/Day Years [...] as of this encounter Plan of Treatment Scheduled Referrals Name Type Priority Associated Diagnoses Order Schedule [facility] Services - Women's Services - [place], [place] - Outpatient Referral Routine Monochorionic diamniotic twin gestation in second trimester 1 Occurrences starting 05/30/2024 until 05/30/2025 documented as of this encounter Visit Diagnoses Diagnosis Monochorionic diamniotic twin gestation in second trimester- Primary documented in this encounter
--- OUTSIDE RECORDS SUMMARY | 2024-12-12 14:38 | XMS_ITS | Encounter Summary ---
Author Organization [facility] Address [address] [place] [address] Care Team Providers Care Chemical Reclamation Equipment Operator Name Role Phone Romero Esteban MD Primary Care Provider Unavail able Reason for Referral * Consultation (Routine) - Closed Specialty Diagnoses / Procedures Referred By Thanh malik Referred To Contact Sports Medicine Diagnoses Acute hip pain, unspecified laterality Romero Esteban MD Referral ID Status Reason Start Date Expiration Date V isits Requested Visits Authorized [id number] Closed Specialty Services Required 01/14/2016 07/14/2017 7 7 Encounter Details Date Type Department Care Team (Latest Contact Info) Description 01/14/2016 Community Orders [facility] Romero Esteban MD Social History Tobacco Use Types Packs/Day Years Used Date Smoking Tobacco: Never Assessed Comments Unknown Sex and Gender Information Value Date Recorded Sex Assigned at Not on file Legal Sex Female 12:54 AM EST Gender Identity Not on file Sexual Orientation Not on file documented as of this encounter Plan of Treatment Scheduled Referrals Name Type Priority Associated Diagnoses Orde r Schedule REFERRAL TO ORTHOPEDICS Outpatient Referral Routine Acute Hip Pain, Unspecified Laterality Ordered: 01/14/2016 documented as of this encounter Visit Diagnoses Diagnosis Acute hip pain, unspecified laterality- Primary documented in this encounter Care Teams Chemical Reclamation Equipment Operator Relationship Specialty Start Date End Date Romero Esteban MD PCP - General Pediatrics 06/22/12 documented as of this encounter
--- OUTSIDE RECORDS SUMMARY | 2024-12-12 14:38 | XMS_ITS | Encounter Summary ---
Author Organization [facility] Address [address] [place] [address] Care Team Providers Care [employer] Ranger Name Role Phone Romero Esteban MD Primary Care Provider Unavail able Reason for Referral * Consultation (Routine) - Closed Specialty Diagnoses / Procedures Referred By Thanh malik Referred To Contact Adolescent Medicine Diagnoses Irregular periods Romero Esteban MD [facility] [address] [place] [address] Phone: tel: Referral ID Status Reason Start Date Expiration Date V isits Requested Visits Authorized [id number] Closed Specialty Services Required 08/08/2017 7 7 Encounter Details Date Type Department Care Team (Latest Contact Info) Description 08/08/2017 Community Orders [facility] Romero Esteban MD Social History Tobacco Use Types Packs/Day Years Used Date Smoking Tobacco: Never Smokeless Tobacco: Never Comments Unknown Sex and Gender Information Value Date Recorded Sex Assigned at Not on file Legal Sex Female 12:54 AM EST Gender Identity Not on file Sexual Orientation Not on file documented as of this encounter Plan of Treatment Scheduled Referrals Name Type Priority Associated Diagnoses Order Schedule REFERRAL TO ADOLESCENT MEDICINE Outpatient Referral Routine Irregular periods Ordered: 08/08/2017 documented as of this encounter Visit Diagnoses Diagnosis Irregular periods- Primary Irregular menstrual cycle documented in this encounter Care Teams [employer] Relationship Specialty Start Date End Date Romero Esteban MD PCP - General Pediatrics 06/22/12 documented as of this encounter
== END 2024-12-12 18:58 | disposition home or self-care (01) ==
LOC: FBCO 14:34
DX: Z39.1 Encounter for care and examination of lactating mother (principal)